=== PATIENT | female | born 1985 | race Caucasian/White ===

== ENCOUNTER 2024-09-02 10:43 | Outpatient (AMB) | payer OTHER, SELFPAY ==
--- NOTE | 2024-09-02 10:44 | A.OFFPC_ITS ---
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 Required: No Allergies No Known Allergies Allergy (Verified 09/02/24 11:20) Medication List - Last Reconciled 09/02/24 by ANYA McclureP- escitalopram oxalate (Lexapro) 5 mg PO DAILY folic acid 1 mg PO DAILY levothyroxine 25 mcg PO DAILY mecobalamin (vitamin B12) 1,000 mcg PO DAILY norethindrone-ethin estradiol 1-35 mg-mcg 1 tab PO DAILY thiamine HCl (vitamin B1) 50 mg PO DAILY Tobacco use date assessed: 09/02/24 Dental Screening Dental Screen Date: 09/02/24 Did you have a dental visit in the last 12 months?: No Did you have a dental problem in the last 6 months where you did not have access to dental care?: No Was dental information given to patient?: Patient has dentist HPI HPI Comments History of Present Illness Details 38-year-old female current smoker, hypot hyroid, subacromial bursitis bilat shoulders GERD, major depressive disorder, alcohol abuse Status post appendectomy, tonsillectomy, D and C Social History - 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 - Lives with her , who is support michell of her health goals. Family history brother alive with skin cancer, mother alive with hypertension, hyperlipidemia, thyroid disorder, malignant melanoma, [place], father alive with hypertension and skin cancer, maternal grandmother COPD, maternal grandfather Alzheimer's, paternal grandmother Alzheimer's, paternal grandfather Alzheimer's Health maintenance Tdap 2021 Flu Pap 02/12/2024 ascus * pg 62 Specialists Computer Help Desk Representative The patient is a 38-year-old female presenting to establish care and manage chronic conditions. She has tobacco use disorder, alcohol use disorder, major depressive disorder/CARYL and hypothyroidism. Her major depressive disorder/CARYL has been previously managed with escitalopram 5 mg, but she expressed dissatisfaction due to perceived mental discomfort associated with taking it, leading to a temporary cessation for three weeks. After resuming escitalopram, she noticed no significant change in mood. The patient's depression and anxiety are contributing factors to her alcohol consumption, with drinking varying weekly; she occasionally drinks as a coping mechanism during stress. She reports a decreased frequency of alcohol use to four drinks weekly while on escitalopram, although she observed fluctuations in drinking patterns. Most days drinking a few nips QD. Counseling for alcohol use was attempted but deemed ineffective, mainly due to a focus on irrelevant life issues. She has faced a challenging year, dealing with family stressors, including the separation of a stepdaughter and the addition of a grandchild, impacting her mental health. Her hypothyroidism is managed with levothyroxine 25 mcg daily, without endocrinology oversight. The patient is also taking vitamin B12 supplements and control. Her last Pap smear was abnormal, categorized as ASCUS, with a follow-up disrupted by insurance changes. Physical therapy was recommended for shoulder pain, but financial and time constraints have limited her compliance. Social History - Manages stress from recent family lui ges, including stepdaughter?s separation and a new grandchild. - Smokes cigarettes but is contemplating cessation, pending stabilization of other health issues. Ros Complains of pain about bilateral knees that comes and goes. Can be worse in the morning upon waking. Makes it hard for her to go up and down the stairs. Denies any overt injury. Has not had any imaging or lab testing done. Self- limited. Has been ongoing for years. No worse since onset. Exam Awake alert oriented, no acute distress Sclera is nonicteric bilat Thyroid nontender Regular rate and rhythm Lung sounds clear to auscultation bilat Abdomen soft nontender No edema bilateral lower extremities Results - Lab work from prior appointment indica eulalia normal thyroid and liver function tests. - Previous PCP records rec'd and reviewe d Discussion Notes I discussed with the patient the current management strategies for her major depressive disorder, including increasing her escitalopram and the rationale behind this. We explored the benefits of attending the [facility] for holistic support in managing alcohol use disorder and depression. I emphasized the importance of follow-up care, particularly with her abnormal Pap smear, and reassured her about the referral process. I also advised the patient regarding the need to establish healthy boundaries to manage familial stress effectively. The patient agreed to the proposed management plan and expressed understanding of the plan's components and the rationale. Plan - Increase escitalopram from 5 to 10mg, reassess in six weeks. - Referral to [facility] for alcohol use disorder and mental health support. - Referral to [facility] for follow-up on ASCUS Pap smear. - Continue levothyroxine 25 mcg daily; n o immediate endocrinology referral needed. - Obtain nonfasting labs within the [facility] before next appointment. - Discuss possible future liver ultrasou nd if needed. consider referral to GI for upper endoscopy given ETOH - Smoking cessation ed and support Patient was informed and verbally consented to the use of an ambient scribe for clinic note documentation during this visit. Total time spent caring for the patient today was 45 minutes. This includes time spent before the visit reviewing the chart, time spent during the visit, and time spent after the visit on documentation. This note is constructed using voice recognition software. While every effort has been made to ensure accuracy in optical worker, still errors may have been included Sometimes, these errors may affect the content or meaning of the given sentence . [facility] Medical History (Updated 09/02/24 @ 15:42 by Nereyda Dang [facility]) Anxiety Thyroid disorder Surgical History (Updated 09/02/24 @ 10:58 by Imtiaz Wren MA) History of tonsillectomy History of appendectomy Family History (Updated 09/02/24 @ 10:58 by Imtiaz Wren MA) Maternal Grandfather Substance abuse Sister Substance abuse Mother Cancer Hypertension Brother Cancer Asthma Father Cancer Hypertension Social History (Updated 09/02/24 @ 10:56 by Imtiaz Wren MA) Household Members: Spouse Both parents involved: No Caregiver staying overnight: No Housing: House Are you a primary health care / medical job titles to a significant other at home: No Do you presently have visiting nurse or other home services: No 75 years or older and lives alone: No Alcohol intake: current Alcohol intake frequency: a few times a month Patient Tobacco Use Status: Current everyday Tobacco user Cigarettes Per Day: 10 Years Smoked: 19 e-Cigarette/Vaping Use: Never Used Second Hand Smoke Exposure: No Current occupational status: employed 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 1. Little interest or pleasure in doing things: not at all 2. Feeling down, depressed, or hopeless: not at all 3. Trouble falling or staying asleep, or sleeping too much: several days 4. Feeling tired or having little energy: not at all 5. Poor appetite or overeating: not at all 6. Feeling bad about yourself - or that you are a failure or have let yourself or your family down: not at all 7. Trouble concentrating on things, such as reading the newspaper or watching television: not at all 8. Moving or speaking so slowly that other people could have noticed. Or the opposite - being so fidgety or restless that you have been moving around a lot more than usual: not at all 9. Thoughts that you would be better off or of hurting yourself in some way: not at all Total score: 1 Depression Screening Interpretation: Negative Depression Screening Done: Yes 32744 - PHQ-9 Billing: Yes Source: Developed by Drs. Wayne Shelley, Rosalie Banks, Mike Banegas and colleagues, with an educational gary from [employer]. Thrive Questionnaire Date Thrive assessed: 09/02/24 I am a: Patient What is your living situation today?: I have a steady place to live Within the past 12 months, did the food you bought not last and you didn't have the money to get more?: Never true Within the past 12 months, did you worry whether your food would run out before you got money to buy more?: Never true Do you have trouble paying for medicines?: No Do you have trouble getting transportation to medical appointments?: No Do you have trouble paying your heating and electricity bill?: No Do you have trouble taking care of your child, family member or friend?: No Do you have trouble with day-to-day activities such as bathing, preparing meals, shopping, managing finances, etc.?: No Are you currently unemployed and looking for a job?: No Are you interested in more education?: No Please select the resources that you would like help with: None Currently or been in a relationship where the following occur: No concerns reported THRIVE Score: 0 AUDIT C Alcohol Use Questionnaire (AUDIT-C) 1. How often do you have a drink containing alcohol?: 2-3 times a week 2. How many drinks containing alcohol do you have on a typical day when you are drinking?: 1 or 2 3. How often do you have six or more drinks on one occasion?: Monthly Total Score: 5 Score Reviewed/Action Taken: Yes CARYL-7 AMB Questionnaire CARYL-7 Date CARYL - 7 assessed: 09/02/24 Feeling nervous, anxious, or on edge: 0 = Not at all Not being able to stop or control worryin = Not at all Worrying too much about different things: 0 = Not at all Trouble relaxin = Not at all Being so restless that it is hard to sit still: 0 = Not at all Becoming easily annoyed or irritable: 0 = Not at all Feeling afraid as if something awful might happen: 0 = Not at all Total CARYL-7 score (0-4 normal; 5-9 mild; 10-14 moderate; 15-21 severe): 0 Source: Developed by Drs. Wayne Shelley, Rosalie Banks, Mike Banegas and colleagues, with an educational gary from [employer]. CARYL-7 Assessment Billing CARYL-7 Assessment Tool: CARYL-7 Assessment 25844 Physical exam (Primary Care) Vital Signs: Last Vital Signs Pulse 72 09/02/24 10:59 Resp 14 09/02/24 10:59 BP 132/74 09/02/24 10:59 Pulse Ox 100 09/02/24 10:59 Oxygen Delivery Method Room Air 09/02/24 10:59 BMI result Body Mass Index 21.6 Tobacco/Smoking Status: Tobacco use Status Tobacco use date assessed 09/02/24 09/02/24 10:59 Patient Tobacco Use Status Current everyday Tobacco 09/02/24 10:59 e-Cigarette/Vaping Use Never Used 09/02/24 10:59 Are you ready to quit: Yes Tobacco cessation counseling provided: Yes Items discussed: Nicotine replacement, QuitWorks and Other Relapse Prevention: discussed the importance of a supportive environment, discussed extending NRT, discussed negative mood or depression after quitting, weight gain after smoking is common and discussed dietary, exercise and/or lifestyle changes Number of minutes spent counselin CPT code: 16668 - 4-10 Minutes PHQ-9: PHQ-9 Score PHQ-9: Total score 1 09/02/24 11:25 Depression Screening Interpretation: Negative Thrive Assessment: Date of Thrive Assessment Date Thrive assessed 09/02/24 09/02/24 10:48 Currently or been in a relationship where the following occur: No concerns reported Coding Level of Care Code New Pt Level 4 (46768) Complex EM visit Add On G2211 Diagnoses Alcohol abuse F10.10 Acquired hypothyroidism E03.9 Hypothyroidism type: acquired Moderate episode of recurrent major depressive disorder F33.1 Major depression episode severity: moderate CARYL (generalized anxiety disorder) F41.1 Pap smear vag w ASC-US R87.620 Tobacco dependence F17.200 Additional Codes CARYL-7 Assessment Billing - CARYL-7 Assessment Tool: CARYL-7 Assessment 77851 ([id number]) PHQ-9 - 44890 - PHQ-9 Billing: Yes ([id number]) Vital Signs *Quality* - CPT code: 80614 - 4-10 Minutes ([id number]) Assessment & Plan Assessment & Plan (1) Alcohol abuse: Code(s): F10.10 - Alcohol abuse, uncomplicated Category: Social Hx (2) Hypothyroid: Code(s): E03.9 - Hypothyroidism, unspecified Category: Medical Qualifiers: Hypothyroidism type: acquired Qualified Code(s): E03.9 - Hypothyroidism, unspecified (3) MDD (major depressive disorder), recurrent episode: Code(s): F33.9 - Major depressive disorder, recurrent, unspecified Category: Medical Qualifiers: Major depression episode severity: moderate Qualified Code(s): F33.1 - Major depressive disorder, recurrent, moderate (4) CARYL (generalized anxiety disorder): Code(s): F41.1 - Generalized anxiety disorder Category: Medical (5) Pap smear vag w ASC-US: Comment: 01/2024 Code(s): R87.620 - Atypical squamous cells of undetermined significance on cytologic smear of vagina (ASC-US) Category: Medical (6) Tobacco dependence: Comment: Smoking Cessation How to Quit There are a lot of ways to quit smoking and many resources to help you. Family members, friends, and co-workers may be supportive or encouraging, but to be successful the desire and commitment to quit must be your own. Most people who have been able to successfully quit smoking made at least one unsuccessful attempt in the past. Try not to view past attempts to quit as failures, but rather as learning experiences. Stopping smoking or using smokeless tobacco is difficult, but anyone can do it. Know the symptoms to expect when you stop. Common symptoms include: ? An intense craving for nicotine ? Anxiety, tension, restlessness, frustration, or impatience ? Difficulty concentrating ? Drowsiness or trouble sleeping, as well as bad dreams and nightmares ? Drowsiness and trouble sleeping ? Headaches ? Increased appetite and weight gain ? Irritability or depression How severe your symptoms are depends on how long you smoked and how many cigarettes you smoked each day. Feel ready to quit? ? First and foremost, set a quit date and quit completely on that day. Before your quit date, you may begin reducing your cigarette use. But remember, there is no safe level of cigarette smoking. ? List the reasons why you want to quit. Include both short- and long-term benefits. ? Identify the times you are most likely to smoke. For example, do you tend to smoke when feeling stressed or down? When out at night with friends? While drinking coffee or alcohol? When bored? While driving? Right after a meal or sex? During a work break? While watching TV or playing cards? When you are with other smokers? ? Let all of your friends, family, and co-workers know of your plan to stop smoking and your quit date. Just being aware that they know what you're going through can be helpful, especially when you are grumpy. ? Get rid of all your cigarettes just before the quit date, and clean out anything that smells like smoke, such as clothes and furniture. Make a plan about what you will do instead of smoking at those times when you are most likely to smoke. ? Be as specific as possible. For example, drink tea instead of coffee -- tea may not trigger the desire for a cigarette. Or, take a walk when you feel stressed. ? Remove ashtrays and cigarettes from the car. Place pretzels or hard candies there instead. Pretend-smoke with a straw. ? Find activities that focus your hands and mind but are not taxing or fattening. Computer games, solitaire, knitting, sewing, and crossword puzzles may help. ? If you normally smoke after eating, find other ways to end a meal. Play a tape or CD, eat a piece of fruit, get up and make a phone call, or take a walk (a good distraction that also leyva calories). Make other changes in your lifestyle. ? Change your daily schedule and habits. Eat at different times or eat several small meals instead of three large ones. Sit in a different chair or even a different room. ? Satisfy your oral habits by eating celery or other low-calorie snack, chewing sugarless gum, or sucking on a cinnamon stick. ? Go to public places and restaurants where smoking is prohibited or restricted. ? Eat regular meals and don't eat too much candy or sweet things. ? Get more exercise. Take walks or ride a bike. Exercise helps relieve the urge to smoke. Set short-term quitting goals and reward yourself when you meet them. ? Every day, put the money you normally spend on cigarettes in a jar. Then buy something pleasurable after a period of time. ? Try not to think about all the days ahead you will need to avoid smoking. Take it one day at a time. ? Even one puff or one cigarette will make your desire for more cigarettes even stronger. However, it is normal to make mistakes. So even if you have one cigarette, you don't need to take the next one. Other tips to help you quit smoking and stick to it: ? Enroll in a smoking cessation program (hospitals, health departments, community centers, and work sites often offer programs). Learn about self-hypnosis or other techniques. ? Ask your health care provider about prescription medications that are safe and appropriate for you. ? Find out about nicotine patches, gum, and sprays. The [place] [employer]'s web site -- www.cancer.org -- is an excellent resource for smokers who are trying to quit, and the [employer] [place] [employer] can help some smokers kick the habit. Above all, don't get discouraged if you aren't able to quit smoking the first time. Nicotine addiction is a hard habit to break. Try something different next time. Develop new strategies, and try again. Many people take several attempts to finally kick the habit. Code(s): F17.200 - Nicotine dependence, unspecified, uncomplicated Category: Medical Plan . Orders: Orders Complete Blood Count no Diff Today E03.9 - Hypothyroidism, unspecified, F33.9 - Major depressive disorder, recurrent, unspecified, F41.1 - Generalized anxiety disorder Comprehensive Met. Panel Today E03.9 - Hypothyroidism, unspecified, F33.9 - M ajor depressive disorder, recurrent, unspecified, F41.1 - Generalized anxiety disorder LDL Cholesterol Direct Today E03.9 - Hypothyroidism, unspecified, F33.9 - Major depressive disorder, recurrent, unspecified, F41.1 - Generalized anxiety disorder Microalbumin, Random (w Creat) Today E03.9 - Hypothyroidism, unspecified, F33.9 - Major depressive disorder, recurrent, unspecified, F41.1 - Generalized anxiety disorder TSH reflex Free T4 Today E03.9 - Hypothyroidism, unspecified, F33.9 - Major depressive disorder, recurrent, unspecified, F41.1 - Generalized anxiety disorder Vitamin B12 and Folate Today E03.9 - Hypothyroidism, unspecified, F33.9 - Major depressive disorder, recurrent, unspecified, F41.1 - Generalized anxiety disorder Hepatitis A,B,C Profile Today E03.9 - Hypothyroidism, unspecified, F33.9 - Major depressive disorder, recurrent, unspecified, F41.1 - Generalized anxiety disorder Hemoglobin A1c Today E03.9 - Hypothyroidism, unspecified, F33.9 - Major depressive disorder, recurrent, unspecified, F41.1 - Generalized anxiety disorder Vitamin D 25-OH Total Today E03.9 - Hypothyroidism, unspecified, F33.9 - Major depressive disorder, recurrent, unspecified, F41.1 - Generalized anxiety dis order Ferritin Today E03.9 - Hypothyroidism, unspecified, F33.9 - Major depressive disorder, recurrent, unspecified, F41.1 - Generalized anxiety disorder Referrals Addiction Medicine Referral F10.10 - Alcohol abuse, uncomplicated 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 Seasonal Allergies ? Insect Bites ? Cough ? Diarrhea ? Acute Asthma Attacks ? Back, Knee or Joint Pain ? Ear Infection ? Fever without a Rash ? Headaches ? Nausea ? [place] [facility], Rash or Skin Irritation ? Sore Throat ? Sports Physicals ? Vomiting Most insurances are accepted. Patients do not need to be part of the [facility] to seek care at the walk-in clinic. Locations [address] [facility] , [place] [address] ? [phone] [facility] Walk-In Care in [place] provides services to ages 18 and over. Open Monday-Monday: 8 a.m. to 5 p.m. and Monday: 9 a.m. to 3 p.m.* *Hours may vary due to staffing availability. To confirm Walk-In Care hours in [place], please call [phone]. [address] [place] [address] ? [phone] [facility] Walk-In Care in [place] provides services to ages 12 and over. Open Monday-Monday: 8 a.m. to 5 p.m. Hours may vary due to staffing availability. To confirm Walk-In Care hours in [place], please call [phone]. LABORATORY SERVICES: [facility] Lab ? Primary Location [address] [place] [address] Monday through Monday 6:00 AM ? 5:00 PM Monday 7:00 AM ? 11:00 AM* [phone] [facility] Lab is centrally located near the front entrance of the [facility] for easy outpatient access. Convenient parking is provided for outpatients. *Hours may vary due to staffing availability. To confirm Laboratory hours for any location, please call [phone]. Offsite Location For your convenience, we offer offsite laboratory draw stations at the following locations: [address] [place] [address] ? [address], [address] Monday through Monday 7:30 AM ? 1:00 PM* [phone] *Hours may vary due to staffing availability. To confirm Laboratory hours for any location, please call [phone]. [place] ? [address] Monday through Monday 6:00 AM ? 3:30 PM* Monday 6:30 AM ? 3 PM* [phone] *Hours may vary due to staffing availability. To confirm Laboratory hours for any location, please call [phone] [place] [address] Monday through Monday 7:30 AM ? 4:00 PM* [phone] *Hours may vary due to staffing availability. To confirm Laboratory hours for any location, please call [phone]. [facility] Monday through 9:00 AM ? 4:00 PM* *Hours may vary due to staffing availability. To confirm Laboratory hours for any location, please call [phone]. Appointments are not necessary. Walk-ins are welcome. Like all the departments throughout the [facility], our Lab undergoes frequent reviews to ensure the quality and accuracy of test results, and our staff takes special pride in its status as a nationally accredited facility. Patient Portal: ONE PATIENT. ONE RECORD. BETTER CARE. [facility] has a fully integrated, cutting- edge mobile electronic health information system that has revolutionized the way we care for our patients and manage our organization. This system improves communication and coordination enabling us to provide safe, higher-quality care, and an overall positive experience for staff and patients. Our first priority, as always, is to deliver the highest quality care possible. The system is running in the background supporting that priority. This portal is for all [facility] services and practices. If you are experiencing any technical difficulties with enrolling or logging into the Patient Portal please complete the [facility] Patient Portal Technical Support Form. [facility] now offers a new secure on-line interactive tool for patients to review their health information ? ?Patient Portal. This interactive web portal will enable patients and their families to take an active role in their care by providing easy, secure access to their health information via the internet. The Patient Portal provides patients with instant access to their health information, including laboratory results, medications, allergies, demographic information, visit history, and more. In addition to managing their own care, parents and health care proxies with authorized consent will appreciate the ability to access the records of those individuals for whom they provide care. Please note: if you wish to gain access (Proxy) to another patient?s portal, you will be required to come to the Medical Records Department in person at [facility]. Both the patient giving proxy access and the proxy will need to provide photo identification and complete the appropriate authorization. The Patient Portal also allows track their appointments online. The [facility] Patient Portal also saves patients time by allowing them to submit updates to their demographic and contact information prior to their visits. Portal email notifications will also alert patients to any new activity on their portal, such as test results and new appointments. In order to initially enroll in the [facility] Patient Portal, you will need to enter some required information including the following: * your [facility] Medical Record number * your personal home email address * name * date of Please note: In order to enroll in the [facility] Patient Portal, we need to have your email address on file in your electronic medical record. ?The email address needs to be specific for one person (yourself) in order for your Portal enrollment to be successful. ?You can update your email address in person with our Registration staff when you are registering for a hospital visit. ?Ot herwise, you will need to come to the Health Information Management (Medical Records) Department at [facility]. ?We are open from Monday ? Monday from 7:30 a.m. ? 4:30 p.m. ?You will be required to present a photo id. Once you have successfully enrolled in the Patient Portal, you will receive a one-time user id and password for the Portal, sent to your email address. ?This will allow you to log into the Patient Portal within 99 hrs and reset your own logon id and password, and define personal security questions. ?Once your permanent login and password have been set, you can log into the [facility] Patient Portal at any time via the blue button above or from the Portal Logon button on any page of the [facility] website. [facility] and [facility] encourage all of our patients to enroll in Patient Portal as it presents a valuable opportunity for patients and their families to actively participate in their care and stay healthy Welcome to [facility]. ?We look forward to working with you.
[2024-09-02 10:59] VITALS: BP 132/74; PULSE 72; RESP 14; O2SAT 100; BMI 21.6
== END 2024-09-02 11:39 | disposition home or self-care (01) ==
PROVIDERS: Visit Provider Nurse Practitioner Family
DX: F10.10 Alcohol abuse, uncomplicated (principal); E03.9 Hypothyroidism, unspecified; F33.1 Major depressive disorder, recurrent, moderate; F41.1 Generalized anxiety disorder; R87.620 Atypical squamous cells of undetermined significance on cytologic smear of vagina (ASC-US); F17.200 Nicotine dependence, unspecified, uncomplicated

== ENCOUNTER → 2024-09-02 10:43 | Outpatient (BNVA) | payer OTHER, SELFPAY | PROVIDERS: Visit Provider Nurse Practitioner Family | DX: F10.10 Alcohol abuse, uncomplicated (principal); E03.9 Hypothyroidism, unspecified; F33.1 Major depressive disorder, recurrent, moderate; F41.1 Generalized anxiety disorder; R87.620 Atypical squamous cells of undetermined significance on cytologic smear of vagina (ASC-US); F17.210 Nicotine dependence, cigarettes, uncomplicated | CPT/HCPCS: 96127 ==

== ENCOUNTER 2024-10-09 11:29 | Outpatient (REF) | payer OTHER, SELFPAY ==
--- OUTSIDE RECORDS SUMMARY | 2024-10-09 12:10 | XMS_ITS | Data Portability ---
[facility] Organization [facility] Address [address] [place] [address] Care Team Providers Care Tugger Operator Name Role Phone FAVIOLA GOODSON Primary Care Provider [phone] FAVIOLA GOODSON Referring Provider Assessment No assessment recorded. Plan of Treatment Reminders Order Date Submit Date Provider Last Modified By Organization Details Last Modified Time Details Appointments None recorded . Lab rapid strep group A, throat 06/12/20 [id number] [facility], [address] [place], [address], 9 14:06:29 culture, throat 06/12/20 [facility], [address] [place], [address], 9 09:08:54 Referral None recorded . Procedures None recorded . Surgeries None recorded . Imaging None recorded . Medication Orders None recorded . Patient TargetsNo targets recorded. Patient InstructionsNo instructions recorded. Reason for Referral None Reported. Results Created Date Observation Date Name Description Value Unit Range Abnormal Flag Note LastModifiedBy Organization Detail LastModifiedTime 07/22/20 17 07/22/2017 surgi bryce mendiolao logy study surgical ----- ----- ----- ----- ----- ----- ----- ----- ----- ----- ----- ----- ----- ----- ----- ----- ----- ----- -- PATIE NT: DEBI NAQVI [id number] LOC: [facility] U #: [id number] AGE/S X: 31/F ROOM: RE07/[address]: Rachel mayes,ulises [facility] DO : 12/13 BED: DIS: STATU S: DEP [facility] PROCE DURE/ OPERA TION PERFO RMED: SHERI EMILI MY SPEC #: [id number] RECD: 07/24-0 803 STATU S: SOUT REQ #: [id number] TRINA: 07/22-[address]: Rcahel mayes,[facility] DO ENTER ED: 07/24-0 806 SP TYPE: Surgi bryce OTHR DR: Ulises Hager File TISSU E:Rosalie endix ----- ----- ----- ----- ----- ----- ----- ----- ----- ----- ----- ----- ----- ----- ----- ----- ----- ----- -- Final Diagn osis SHERI TOVARSHERI MY: - Acute appen dicit is with peria ppend iciti s. Gross Exami natio n Recei meena in forma jamal label ed Krist en Michelle hernandez, 12-13 and appe ndix . It consi sts of a stapl ed appen re with its attac hed appen dicea l fat, the appen re measu ring 7 cm in lengt h by 1.0 cm in maxim um diame ter. The attac hed fatty appen dicea l fat measu res 1.5 cm in maxim al thick ness. Almos t the entir e seros al surfa ce is cover ed by kojo fisher exuda te. The tip of the appen re is inked and the speci men is RS, two casse ttes as follo ws: casse tte 1 = longi tudin al secti on and resec tion tessy n casscharissa tte 2 = repre senta tive cross -sect ions. () 07-24 MIRA Turk MD 07/25 1212 ----- ----- ----- ----- ----- ----- ----- ----- ----- ----- ----- ----- ----- ----- ----- ----- ----- ----- -- Not Available [facility] [address] [place], [address], 07/25/2017 12:13:50 06/12/2006/14/2019 cultu re, throa t throat culture No growth . Not Available [facility] [address] [place], [address], 06/14/2019 09:08:54 06/12/2006/12/2019 rapid strep group A, throa t Result negati ve Not Available [address] [place], [address], 06/12/2019 13:29:39 06/12/2006/12/2019 rapid strep group A, throa t Internal Control Valid Not Available [address] [place], [address], 06/12/2019 13:29:39 06/12/2006/12/2019 rapid strep group A, throa t Lot # [id number] Not Available [address] [place], [address], 06/12/2019 13:29:39 06/12/2006/12/2019 rapid strep group A, throa t Exp. Date 2020 Not Available [facility] [address] [place], [address], 06/12/2019 13:29:39 Result Notes None recorded. Problems No Known Problems Procedures Surgical History Date Name Laterality Status Provider Name and Address Organization Details Recorded Time 7 appendectomy completed Hortencia Hanley [facility] 07/25/2017 13:56:33 Imaging Results None recorded. Procedure Notes None recorded. Medical Equipment None Reported. Allergies No known drug allergies Medications Name Sig Start Date Stop Date Status Note LastModified by Organization Details LastModified Time hydrocodone 5 mg-acetaminop hen 325 mg tablet 2016 completed Not Available Not Available Not Available Microgestin Fe 1.5/30 (28) 1.5 mg-30 mcg (21)/75 mg (7) tablet active Not Available Not Available N ot Available Vitals Date Recorded Body height Body mass index (BMI) Body weight Systolic blood pressure Diastolic blood pressure Provider Name and Address Organization Details Last Updated DateTime 07/31/2017 170.18 cm 20.4 kg/m2 11263.01 g 118 mm[Hg] 72 mm[Hg] Sandy Dubon MA [facility] 7 09:24:21 Date Recorded Body weight Body temperature Heart rate Oxygen saturation Oxygen saturation in Arterial blood by Pulse oximetry Systolic blood pressure Diastolic blood pressure Provider Name and Address Organization Details Last Updated DateTime 9 33746.2 9 g 99.1 [degF] 87 /min 98 % 98 % 126 mm[Hg] 68 mm[Hg] Elvia Pistorino [facility] 9 13:29:32 Social History None recorded. Functional Status None recorded. Mental Status None recorded. Family History Nothing Reported. Medical History No medical history recorded. Gynecological HistoryNo gynecological history recorded. Obstetrics History GPAL:G 0 P 0 0 0 0 Past Encounters Encounter ID Performer Location Encounter Start Date Encounter Closed Date Diagnosis/Indication Diagnosis SNOMED-CT Code Diagnosis ICD10 Code Diagnosis Note [id number] Chris mayes DO [facility] [address] [place] [address] NAIMA MARTÍNEZ [id number] 07/31/2017 09:12:45 07/31/2017 12:46:52 Postoperative visit 540471789 Z09 OK to D/C and follow up prn Path acute appendicit is [id number] [facility] [address] [place] [address] 06/12/2019 13:08:14 06/12/2019 14:41:48 Acute pharyngitis 462716935 J02.9 ? P resentatio n consistent with viral pharyngiti s. Rapid strep negative; sending culture and will call with results. Advise fluids, rest, Tylenol/Mo evans for fever and pain. Follow up with PCP in 2-3 days if symptoms persist or sooner if worsening. Impacted cerumen 7703957 6 H61.23 Cerumen removed with improvemen t to symptoms, no signs/symp toms of secondary infxn. Discussed use of OTC kits to help prevent impaction. Advised against use of q-tips. F/u if symptoms recur. Health Concerns Section Related Observation LastModified by Organization Detai ls LastModified Time None Recorded Concern Status LastModified by Organization Details LastModified Time None Recorded Advance Directives Directive None Recorded Payers Encounter Date Sequence Insurance Name Policy Number Policy Garcia Covered Member ID Garcia Member ID Guarantor Name 07/31/2017 1 [facility] [id number] Tiffany Mehtamelba [id number] Tiffany Mixon 06/12/2019 1 [facility] Tiffany Mixon [id number] Tiffany Mixon Notes Date Note Type Note Provider Name and Address Organization Details Recorded Time 07/31/2017 text/html 31 yo F presenting for lap appendectomy. She is doing well post operatively. Incision is C/D/I. Pain resolved. Tolerating diet. Having BM. Chris Ceja DO [address] [place] [address], [phone], [facility] 07/31/2017 11:57:59 06/12/2019 text/html 33/F presents fo r sore throat. Reports: - 3d sore throat, fatigue, body aches - still has appetite - minimal runny nose, no cough - tonsils removed 10 yrs ago, no strep since then - smoker - PCP Dr. Faviola Goodson ROS: sore throat, fatigue, body aches, minimal rhinorrhea, no fever, no cough, no ear pain Helen Parker MD [address] [place] [address], [phone], [facility] 06/13/2019 05:52:51 OBGyn Episode No OBEpisode recorded.
--- OUTSIDE RECORDS SUMMARY | 2024-10-09 12:10 | XMS_ITS | Clinical Summary ---
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 01/31/2024 Active cyanocobalamin (VITAMIN B-12) 1,000 mcg tablet Take 1 Tablet by mouth daily. 03/07/2022 Active escitalopram (LEXAPRO) 5 mg tablet Take 1 tablet (5 mg total) by mouth 1 (one) time each day. 90 each 06/25/2024 Active levothyroxine (SYNTHROID, LEVOTHROID) 25 mcg tablet Take 1 tablet (25 mcg total) by mouth 1 (one) time each day before breakfast. 90 tablet 1 06/25/2024 Active Active Problems Problem Noted Date Diagnosed Date Elevated TSH 05/27/2024 Cigarette smoker 03/07/2022 Subacromial bursitis of both shoulders 2 Immunizations Name Administration Dates Next Due DTP 02/26/1993, 9,08/01/1988,1987,03/04/1988 [id number] (Pentacel) 2mo to less than 5yo 07/10/1989 HPV, Quadrivalent 02/06/2013,10/01/2012,07/26/20 12 Hepatitis B Pediatric (Enger ix B; Recombivax HB) to less than 20 yo 05/07/1997,07/30/1996,05/02/1996 Influenza trivalent, with preservative (Fluzone; Afluria) 6mo and older 05/06/2011 MMR, measles mumps and rubel la Live (Priorix; M-M-R II) 12mo and older 04/14/1999,12/24/1990 OPV 02/26/1993, 9,05/25/1988,1987 Pfizer SARS-CoV-2 COVID-19, mRNA, LNP-S, preservative free 08/21/2021 Td Tetanus diptheria (Tdvax) 7yo and older 04/14/1999 Tdap Tetanus diptheria acell ular pertussis (Boostrix; Adacel) 7yo and older 03/07/2022,05/06/2011 Surgical History Surgery Date Site/Laterality Comments TONSILLECTOMY 08/27/10 PROCEDURE: HISTORICAL TONSILLECTOMY OTHER SURGICAL HISTORY 2008 PROCEDURE: HISTORICAL D&C APPENDECTOMY 07/2017 PROCEDURE: PA APPENDECTOMY Medical History Medical History Date Comments Strep sore throat 10/29,11/29,05/01 DX:Strep sore throat; COMMENT: referred to ENT, tonsilectomy 09/01 Elevated TSH DX:Elevated TSH Tobacco user DX:Tobacco user Varicella DX:Varicella Subacromial bursitis DX:Subacrom ial bursitis Family History Medical History Relation Name Comments Other: skin cancer Brother Hypertension Father Other: skin cancer Father Alzheimer's disease Maternal Grandfather COPD Maternal Grandmother Hyperlipidemia Mother Hypertension Mother Other cancer Mother malignant melan joão Thyroid disease Mother Alzheimer's disease Paternal Grandfather Alzheimer's disease Paternal Grandmother Breast cancer Neg Hx Ovarian cancer Neg Hx Uterine cancer Neg Hx Relation Name Status Comments Brother Father Alive Maternal Grandfather Maternal Grandmother Mother Alive Paternal Grandfather Paternal Grandmother Social History Tobacco Use Types Packs/Day Years Used Date Smoking Tobacco: Every Day Cigarettes Smokeless Tobacco: Never Alcohol Use Standard Drinks/Week Comments Yes 0 (1 standard drink = 0.6 oz pur e alcohol) Housing Instability Answer Date Recorde d Are you worried that in the next 2 months you may not have stable housing? No 06/25/2024 Food Access & Nutrition Answer Date Rec orded Do you have access to a vari ety of food including fruits and vegetables? Yes 06/25/2024 Access to Healthcare Answer Date Record ed Within the last 3 months, ho w many times did you visit the emergency department for your medical care? 0 06/25/2024 Health Literacy Answer Date Recorded How often do you need to hav e someone help you when you read instructions, pamphlets, or other written material from your doctor or pharmacy? Never 06/25/2024 Caregiver: How often do you need to have someone help you when you read instructions, pamphlets, or other written material from your doctor or pharmacy? Not on file 06/25/2024 Financial Risk Answer Date Recorded How hard is it for you to pa y for the very basics like food, housing, medical care, and air conditioning / heating? Patient declined 06/25/2024 Transportation Answer Date Recorded Has the lack of transportati on kept you from meetings, work, or from getting things needed for daily living? No Has the lack of transportati on kept you from medical appointments or from getting medications? No 06/25/2024 Social Isolation Answer Date Recorded How often do you feel lonely or isolated from th ose around you? Never 06/25/2024 Food Risk Answer Date Recorded Within the past 12 months we worried whether our food would run out before we got money to buy more. Never true 06/25/2024 Within the past 12 months th e food we bought just didn't last and we didn't have money to get more. Never true 06/25/2024 Dependent Care Answer Date Recorded Do you need help finding or paying for care for your loved ones. For example, child day care provider or elderly care for an older adult? No 06/25/2024 Education Answer Date Recorded Do you think completing more education or training, like finishing a GED, going to college, or learning a trade, would be helpful for you? Patient declined 06/25/2024 Employment and Income Answer Date Recor ded During the last four weeks, have you been actively looking for work? No 06/25/2024 Living Situation Answer Date Recorded What is your living situation? 1 08/25/2023 Comments Unknown Sex and Gender Information Value Date Recorded Sex Assigned at Not on file Legal Sex Female 9:32 PM EST Gender Identity Not on file Sexual Orientation Not on file Obstetrics History Last Filed Vital Signs Vital Sign Reading Time Taken Comments Blood Pressure 98/62 06/25/2024 1:33 PM EST Pulse 72 06/25/2024 1:33 PM EST Temperature 36.3 ??C (97.3 ??F) 06/25/2024 1:33 PM ES T Respiratory Rate 14 06/25/2024 1:33 PM EST Oxygen Saturation - - Inhaled Oxygen Concentration - - Weight 60.8 kg (134 lb) 06/25/2024 1:33 PM EST Height 170.2 cm (5' 7 ) 06/25/2024 1:33 PM EST Body Mass Index 20.99 06/25/2024 1:33 PM EST Plan of Treatment Health Maintenance Due Date Last Done Comments Pneumococcal Vaccine: Pediatrics (0 to 5 Years) and At-Risk Patients (6 to 64 Years) (1 of 2 - PCV) 12/13/2006 COVID-19 Vaccine () 04/21/2024 08/21/2021, 08/04/2021, 09/29/2020, Additional history exists Influenza Vaccine (#1) 2024 , 08/04/2021, 05/06/2011 Depression Screening 06/25/2025 06/25/2024 Social Influencers of Health Screening 06/25/2025 06/25/2024 Cholesterol Screening (Lipid Panel) 03/07/2027 03/07/2022 Cervical Cancer Screening: HPV 01/30/2029 01/31/2024 DTaP,Tdap,and Td Vaccines (9 - Td or Tdap) 03/07/2032 03/07/2022, 05/06/2011, 04/14/1999, Additional history exists HIB Vaccines Completed 07/10/1989, 07/10/1989 IPV Vaccines Completed 02/26/1993, 06/22, 07/10/1989, Additional history exists Hepatitis B Vaccines Completed 05/07/1997, 07/30/1996, 05/02/1996 MMR Vaccines Completed 04/14/1999, 12/24/1990 HPV Vaccines Completed 02/06/2013, 09/21, 07/26/2012 HIV Screening Completed 07/02/2019 Hepatitis C Screening Completed 03/07/2022 Hepatitis A Vaccines Aged Out No long er eligible based on patient's age to complete this topic Meningococcal ACWY Vaccine Aged Out N o longer eligible based on patient's age to complete this topic Meningococcal B Vacine Aged Out No lo nger eligible based on patient's age to complete this topic RSV Immunization Patients Under 20 months Aged Out No longer eligible based on patient's age to complete this topic Varicella Vaccines Aged Out No longer eligible based on patient's age to complete this topic Procedures Procedure Name Priority Date/Time Associated Diagnosis Comments HPV Routine 01/31/2024 HEPATITIS C SCREENING Routine 03/07/2022 LIPID PANEL Routine 03/07/2022 HIV SCREENING Routine 07/02/2019 from Last 3 Months or Most Recently Relevant to Health Maintenance Results * Cervical Cancer Screening: HPV (01/31/2024) [facility] Cervical Cancer Screening: HPV No Interpretation , Abstracted [facility] Provider HEALTH MAINTENANCE Final Result * Hepatitis C Screening (03/07/2022) [facility] Hepatitis C Screening Abstracted [facility] Provider HEALTH MAINTENANCE Final Result * Lipid panel (03/07/2022) [facility] LDL/HDL Ratio 2 0 - 4 Triglycerides 82 0 - 150 mg/dL Cholesterol 185 0 - 200 mg/dL HDL 76 >=40 mg/dL LDL Cholesterol 93 0 - 100 mg/dL Blood Venous blood specimen / Unknown [facility] Provider LAB BLOOD ORDERABLES Jennifer l Result * HIV Screening (07/02/2019) [facility] HIV Screening Abstracted [facility] Provider HEALTH MAINTENANCE Final Result from Last 3 Months or Most Recently Relevant to Health Maintenance Insurance [facility] Care Teams Landscaping 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
[2024-10-09 14:25] LABS: Hemoglobin 13.2 g/dl (12.0-16.0); Mean Corpuscular Volume 93.9 fL (80.0-98.0); Mean Platelet Volume 10.7 fL (9.4-12.3); Platelet Count 236 X10*3/uL (160-400); Red Blood Count 4.26 X10*6/uL (4.20-5.50); Red Cell Distribution Width 12.7 % (11.0-16.0); White Blood Count 6.6 X10*3/uL (4.8-10.8)
[2024-10-09 14:32] LABS: Estimated Average Glucose 94 mg/dL; Hemoglobin A1C 102.6847 umol/L; Hemoglobin A1c % 4.9 % (<6.0)
[2024-10-09 14:46] LABS: Alanine Aminotransferase 11 U/L (0-31); Albumin Level 4.3 g/dL (3.5-5.0); Anion Gap 11 (12-20); Aspartate Amino Transferase 23 U/L (5-31); Bilirubin Total 1.1 mg/dL (0.0-1.0); Blood Urea Nitrogen 12 mg/dL (9-16); Carbon Dioxide 25 mmol/L (22-29); Chloride 108 mmol/L (96-108); Estimated Glomerular Filt Rate > 60; Glucose Random 93 mg/dL (60-115); Sodium 140 mmol/L (135-145); Total Protein 7.1 g/dL (6.5-8.0)
[2024-10-09 14:46] LABS: Creatinine Urine 434.83 mg/dL; Microalbum/Creatinine Ratio Ur 17.9 ug/mg cr (<30)
[2024-10-09 15:01] LABS: Alkaline Phosphatase 61 U/L (39-117); Ferritin 23 ng/mL (10-122); Vitamin D 25-OH Total 40.3 ng/mL (>30)
[2024-10-09 15:10] LABS: Folate 15.5 ng/mL (> or = 4.0); Vitamin B12 542 pg/mL (200-900)
[2024-10-10 08:15] LABS: HBS Num1 219.07 mIU/mL (0-7.99); HBc Num1 0.09 S/CO (0.00-0.79); Hepatitis A Antibody IgM 0.15 Index (0-0.79); Hepatitis B Core Antibody Nonreactive (Nonreactive); Hepatitis B Surface Antigen Negative (Negative); ~HepC Num1 0.06 S/CO (0.00-0.79); ~Hepatitis A Antibody IgM Nonreactive (Nonreactive); ~Hepatitis B Surface Antibody REACTIVE (Nonreactive); ~Hepatitis C Antibody Nonreactive (Nonreactive)
[2024-10-10 13:38] LABS: LDL Cholesterol Direct 73 mg/dL (<100)
== END 2024-10-09 11:30 | disposition home or self-care (01) ==
LOC: HO.WFDLDS 11:29
PROVIDERS: Visit Provider Nurse Practitioner Family
DX: E03.9 Hypothyroidism, unspecified (principal); F33.9 Major depressive disorder, recurrent, unspecified; F41.1 Generalized anxiety disorder
CPT/HCPCS: 36415; 80053; 82043; 82306; 82570; 82607; 82728; 82746; 83036; 83721; 84443; 85027; 86704; 86706; 86709; 86803; 87340

== ENCOUNTER 2024-10-15 10:26 | Outpatient (AMB) | payer OTHER, SELFPAY ==
--- NOTE | 2024-10-15 10:28 | A.OFFPC_ITS ---
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 Allergies No Known Allergies Allergy (Verified 10/15/24 10:29) Medication List - Last Reconciled 10/15/24 by ANYA McclureP- escitalopram oxalate 20 mg PO DAILY folic acid 1 mg PO DAILY indomethacin 25 mg PO TID PRN levothyroxine 25 mcg PO DAILY mecobalamin (vitamin B12) 1,000 mcg PO DAILY norethindrone-ethin estradiol 1-35 mg-mcg 1 tab PO DAILY Tobacco use date assessed: 10/15/24 Dental Screening Dental Screen Date: 10/15/24 Did you have a dental visit in the last 12 months?: Yes Did you have a dental problem in the last 6 months where you did not have access to dental care?: No Was dental information given to patient?: Patient has dentist HPI HPI Comments History of Present Illness Details 38-year-old female current smoker, hypot hyroid, subacromial bursitis bilat shoulders GERD, major depressive disorder, alcohol abuse Status post appendectomy, tonsillectomy, D and C Social History - 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 - Lives with her , who is support michell of her health goals. Family history brother alive with skin cancer, mother alive with hypertension, hyperlipidemia, thyroid disorder, malignant melanoma, [place], father alive with hypertension and skin cancer, maternal grandmother COPD, maternal grandfather Alzheimer's, paternal grandmother Alzheimer's, paternal grandfather Alzheimer's Health maintenance Tdap 2021 Flu Pap 02/12/2024 ascus * pg 62 09/2024 did not call to schedule [facility] referral closed would like to wait @ this time Specialists Director Global Sales - The patient is a 38-year-old female pr esenting with follow-up on anxiety management and review of lab results. - She has been experiencing Generalized Anxiety Disorder, with no discernible change following an increase in her escitalopram dose from 5 mg to 10 mg. The patient reports no exacerbation of symptoms. - She has Alcohol Use Disorder, with min or improvements in reducing alcohol intake. [facility]: has not successfully made contact with them for further support. - The patient has experienced Bilirubin Level Increase, as indicated by lab results revealing elevated bilirubin. Liver function tests otherwise remain normal. - Patient reports knee pain (Knee Arthra lgia) that fluctuates in intensity, occasionally feeling better. prn NSAIds w/ some relief. - A past result showed ASCUS on cervical cytology, but she currently defers further follow-up testing @ this time. Exam Awake alert oriented, no acute distress Sclera is nonicteric bilat Thyroid nontender Regular rate and rhythm Lung sounds clear to auscultation bilat Abdomen soft nontender No edema bilateral lower extremities Mood and affect appropriate Results Labs from October 10 2024 show a normal CBC, normal electrolytes, normal renal function, hemoglobin A1c of 4.9%, elevated total bilirubin at 1.1% otherwise normal LFTs, normal B12 vitamin-D folate TSH, direct LDL 73 normal microalbumin creatinine ratio - Hepatitis Panel: Negative, immune to H epatitis B Discussion Notes During the visit, we discussed the patient's anxiety management, and I recommended maximizing her current medication by increasing escitalopram to 20 mg before considering the addition of another medication, as she has not experienced side effects from the increase to 10 mg. The patient was educated on the association of alcohol consumption with liver implications, despite normal enzyme readings, and the importance of an ultrasound for further assessment, which she intends to postpone due to cost concerns. Regarding her knee pain, I suggested indomethacin as an option for symptomatic relief, noting its benefit despite its non-addictive profile. We discussed the ASCUS result from her past Pap smear, and she has elected to postpone re-evaluation. Follow-up is planned in six weeks to reassess her condition after the escitalopram dosage change. She was advised to check costs for the liver ultrasound and canopy coverage for diagnostics. Assessment and Plan 1. Generalized Anxiety Disorder: - Escitalopram dosage increased to the m aximum of 20 mg as the current dosage is ineffective. To be monitored for effectiveness and potential side effects. 2. Alcohol Use Disorder: - Continued alcohol intake reduction enc ouraged. Advised contact with [facility] for additional support. 3. Bilirubin Level Increased: - Liver ultrasound recommended to assess potential fibrosis. Currently postponed due to cost concerns. Reinforce moderation in alcohol consumption. 4. Knee Arthralgia: - Offered indomethacin for knee pain as needed, advising on appropriate administration with food to prevent gastrointestinal side effects. 5. ASCUS on Cervical Cytology: - Monitoring deferred as patient prefers to delay follow-up cervical cytology @ this time Patient Instructions - Increase escitalopram dose to 20 mg on ce daily. - Contact the [facility] for further support regarding alcohol use disorder. - Use indomethacin as needed for knee pa in, ensuring to take with food, and do not combine with ibuprofen. - Investigate the cost of liver ultrasou nd with your insurance company to assess feasibility. - Follow up in six weeks via telehealth or in person, depending on convenience. Consent The patient received comprehensive information on the risks and benefits of increasing escitalopram to 20 mg for optimal monotherapy treatment and has consented to this plan. The option of indomethacin was discussed for knee pain, including potential gastrointestinal side effects and the necessity for food co- administration, which the patient acknowledged and consented to use if necessary. An ultrasound for liver assessment was recommended but deferred pending cost evaluation, with a mutual understanding of revisiting this need based on future financial assessments. Patient was informed and verbally consented to the use of an ambient scribe for clinic note documentation during this visit. Total time spent caring for the patient today was 30 minutes. This includes time spent before the visit reviewing the chart, time spent during the visit, and time spent after the visit on documentation, reviewing laboratory results, diagnostic imaging, medications, performing a medically necessary evaluation, counseling on diagnoses, care coordination, ordering appropriate tests, ordering appropriate medications, review of tests performed by other providers, reporting test results with the patient, communication with other healthcare providers. [facility] Medical History (Updated 09/02/24 @ 15:42 by Nereyda Dang [facility]) Anxiety Thyroid disorder Surgical History (Updated 09/02/24 @ 10:58 by Imtiaz Wren MA) History of appendectomy History of tonsillectomy Family History (Updated 09/02/24 @ 10:58 by Imtiaz Wren MA) Maternal Grandfather Substance abuse Sister Substance abuse Mother Cancer Hypertension Brother Cancer Asthma Father Cancer Hypertension Social History (Updated 09/02/24 @ 10:56 by Imtiaz Wren MA) Household Members: Spouse Both parents involved: No Caregiver staying overnight: No Housing: House Are you a primary daytime caregiver to a significant other at home: No Do you presently have visiting nurse or other home services: No 75 years or older and lives alone: No Alcohol intake: current Alcohol intake frequency: a few times a month Patient Tobacco Use Status: Current everyday Tobacco user Cigarettes Per Day: 10 Years Smoked: 19 e-Cigarette/Vaping Use: Never Used Second Hand Smoke Exposure: No Current occupational status: employed 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 1. Little interest or pleasure in doing things: not at all 2. Feeling down, depressed, or hopeless: several days 3. Trouble falling or staying asleep, or sleeping too much: not at all 4. Feeling tired or having little energy: not at all 5. Poor appetite or overeating: not at all 6. Feeling bad about yourself - or that you are a failure or have let yourself or your family down: not at all 7. Trouble concentrating on things, such as reading the newspaper or watching television: not at all 8. Moving or speaking so slowly that other people could have noticed. Or the opposite - being so fidgety or restless that you have been moving around a lot more than usual: not at all 9. Thoughts that you would be better off or of hurting yourself in some way: not at all Total score: 1 19026 - PHQ-9 Billing: Yes Source: Developed by Drs. Wayne Shelley, Rosalie Banks, Mike Banegas and colleagues, with an educational gary from [employer]. Thrive Questionnaire Date Thrive assessed: 10/15/24 I am a: Patient What is your living situation today?: I have a steady place to live Within the past 12 months, did the food you bought not last and you didn't have the money to get more?: Never true Within the past 12 months, did you worry whether your food would run out before you got money to buy more?: Never true Do you have trouble paying for medicines?: No Do you have trouble getting transportation to medical appointments?: No Do you have trouble paying your heating and electricity bill?: No Do you have trouble taking care of your child, family member or friend?: No Do you have trouble with day-to-day activities such as bathing, preparing meals, shopping, managing finances, etc.?: No Are you currently unemployed and looking for a job?: No Are you interested in more education?: No Please select the resources that you would like help with: None Currently or been in a relationship where the following occur: No concerns reported THRIVE Score: 0 CARYL-7 AMB Questionnaire CARYL-7 Date CARYL - 7 assessed: 10/15/24 Feeling nervous, anxious, or on edge: 0 = Not at all Not being able to stop or control worryin = Several days Worrying too much about different things: 1 = Several days Trouble relaxin = Not at all Being so restless that it is hard to sit still: 0 = Not at all Becoming easily annoyed or irritable: 0 = Not at all Feeling afraid as if something awful might happen: 0 = Not at all Total CARYL-7 score (0-4 normal; 5-9 mild; 10-14 moderate; 15-21 severe): 2 Source: Developed by Drs. Wayne Shelley, Rosalie Banks, Mike Banegas and colleagues, with an educational gary from [employer]. CARYL-7 Assessment Billing CARYL-7 Assessment Tool: CARYL-7 Assessment 40145 Physical exam (Primary Care) Vital Signs: Last Vital Signs Temp 97.1 F 10/15/24 10:34 Pulse 60 10/15/24 10:34 Resp 12 10/15/24 10:34 BP 124/72 10/15/24 10:34 Pulse Ox 100 10/15/24 10:34 Oxygen Delivery Method Room Air 10/15/24 10:34 BMI result Body Mass Index 26.8 Tobacco/Smoking Status: Tobacco use Status Tobacco use date assessed 10/15/24 10/15/24 10:36 Patient Tobacco Use Status Current everyday Tobacco 10/15/24 10:36 e-Cigarette/Vaping Use Never Used 10/15/24 10:36 PHQ-9: PHQ-9 Score PHQ-9: Total score 1 10/15/24 10:36 Thrive Assessment: Date of Thrive Assessment Date Thrive assessed 10/15/24 10/15/24 10:36 Currently or been in a relationship where the following occur: No concerns reported Coding Level of Care Code Est Pt Level 4 (24796) Complex EM visit Add On G2211 Diagnoses Alcohol abuse F10.10 CARYL (generalized anxiety disorder) F41.1 Acquired hypothyroidism E03.9 Hypothyroidism type: acquired Moderate episode of recurrent major depressive disorder F33.1 Major depression episode severity: moderate Pap smear vag w ASC-US R87.620 Additional Codes CARYL-7 Assessment Billing - CARYL-7 Assessment Tool: CARYL-7 Assessment 92950 ([id number]) PHQ-9 - 75578 - PHQ-9 Billing: Yes ([id number]) Assessment & Plan Assessment & Plan (1) Alcohol abuse: Code(s): F10.10 - Alcohol abuse, uncomplicated Category: Social Hx (2) CARYL (generalized anxiety disorder): Code(s): F41.1 - Generalized anxiety disorder Category: Medical (3) Hypothyroid: Code(s): E03.9 - Hypothyroidism, unspecified Category: Medical Qualifiers: Hypothyroidism type: acquired Qualified Code(s): E03.9 - Hypothyroidism, unspecified (4) MDD (major depressive disorder), recurrent episode: Code(s): F33.9 - Major depressive disorder, recurrent, unspecified Category: Medical Qualifiers: Major depression episode severity: moderate Qualified Code(s): F33.1 - Major depressive disorder, recurrent, moderate (5) Pap smear vag w ASC-US: Comment: 01/2024 Code(s): R87.620 - Atypical squamous cells of undetermined significance on cytologic smear of vagina (ASC-US) Category: Medical Plan . Medications: New escitalopram oxalate 20 mg PO DAILY 30 tabs 1RF indomethacin administer with food or milk 25 mg PO TID PRN 30 caps 1RF pain (scale score 1-3) Discontinued escitalopram oxalate Discontinued Reason: Doctor's Order 10 mg PO DAILY 30 tabs 0RF Patient Instructions: [facility] [phone]
[2024-10-15 10:34] VITALS: BP 124/72; PULSE 60; RESP 12; TEMP 36.2; O2SAT 100; BMI 26.8
--- OUTSIDE RECORDS SUMMARY | 2024-10-15 12:21 | XMS_ITS | Clinical Summary ---
Author Organization [facility] [address] [place] [address] [place] [phone] Phone Care Team Providers Care Irb Compliance Coordinator Name Role Phone Kofi Carey MD Primary [...] Administration Dates Next Due DTP 02/26/1993, 9,08/01/1988,1987,03/04/1988 [id number] (Pentacel) 2mo to less than 5yo 07/10/1989 [...] 2008 PROCEDURE: HISTORICAL D&C APPENDECTOMY 07/2017 PROCEDURE: IA APPENDECTOMY Medical History Medical History Date Comments [...] for your loved ones. For example, child care counselor or elderly care for an older adult? [...] Results * Cervical Cancer Screening: HPV (01/31/2024) [facility] Cervical Cancer Screening: HPV No Interpretation , Abstracted [facility] Provider HEALTH MAINTENANCE Final Result * Hepatitis C Screening (03/07/2022) [facility] Hepatitis C Screening Abstracted [facility] Provider HEALTH MAINTENANCE Final Result * Lipid panel (03/07/2022) [facility] LDL/HDL Ratio 2 0 - 4 Triglycerides 82 0 - 150 mg/dL Cholesterol 185 0 - 200 mg/dL HDL 76 >=40 mg/dL LDL Cholesterol 93 0 - 100 mg/dL Blood Venous blood specimen / Unknown [facility] Provider LAB BLOOD ORDERABLES Jennifer l Result * HIV Screening (07/02/2019) [facility] HIV Screening Abstracted [facility] Provider HEALTH MAINTENANCE Final Result from Last 3 Months or Most Recently Relevant to Health Maintenance Insurance [facility] Care Teams Irb Compliance Coordinator Relationship Specialty Start Date End Date Kofi Carey MD [address] [place] [address] OR PCP - General Internal Medicine 12/27/21
--- OUTSIDE RECORDS SUMMARY | 2024-10-15 12:22 | XMS_ITS | Data Portability ---
Author Organization [facility] Address [address] [place] [address] Care Team Providers Care Men'S Swim Coach Name Role Phone FAVIOLA GOODSON Primary Care Provider FAVIOLA GOODSON Referring Provider Assessment No assessment recorded. Plan of Treatment Reminders Order Date Submit Date Provider Last Modified By Organization Details Last Modified Time Details Appointments None recorded . Lab rapid strep group A, throat 06/12/20 [id number] [facility], [address] [place], [address], 9 14:06:29 culture, throat 06/12/20 [facility] Patient Reg, [address] [place], [address], 9 09:08:54 Referral None recorded . Procedures [...] -- PATIE NT: DEBI [id number] LOC: [facility] U #: [id number] AGE/S X: 31/F ROOM: RE07/[address]: Rachel mayes,ulises [facility] DO : 12/13 BED: DIS: STATU S: DEP [facility] PROCE DURE/ OPERA TION PERFO RMED: SHERI EMILI MY SPEC #: [id number] RECD: 07/24-0 803 STATU S: SOUT REQ #: [id number] TRINA: 07/22-[address]: Rachel mayes,[facility] DO ENTER ED: 07/24-0 806 [...] ----- ----- ----- ----- -- Not Available [facility] [address] [place], [address], 07/25/2017 12:13:50 06/12/2006/14/2019 cultu re, throa t throat culture No growth . Not Available [facility] [address] [place], [address], 06/14/2019 09:08:54 06/12/2006/12/2019 rapid strep group A, throa t Result negati ve Not Available [address] [place], [address], 06/12/2019 13:29:39 06/12/2006/12/2019 rapid strep group A, throa t Internal Control Valid Not Available [address] [place], [address], 06/12/2019 13:29:39 06/12/2006/12/2019 rapid strep group A, throa t Lot # [id number] Not Available [address] [place], [address], 06/12/2019 13:29:39 06/12/2006/12/2019 rapid strep group A, throa t Exp. Date 2020 Not Available [facility] [address] [place], [address], 06/12/2019 13:29:39 Result Notes None recorded. Problems No Known Problems Procedures Surgical History Date Name Laterality Status Provider Name and Address Organization Details Recorded Time 7 appendectomy completed Hortencia Hanley [facility] 07/25/2017 13:56:33 Imaging Results None recorded. Procedure [...] Updated DateTime 07/31/2017 170.18 cm 20.4 kg/m2 36119.01 g 118 mm[Hg] 72 mm[Hg] Sandy Dubon MA [facility] 7 09:24:21 Date Recorded Body weight Body temperature Heart rate Oxygen saturation Oxygen saturation in Arterial blood by Pulse oximetry Systolic blood pressure Diastolic blood pressure Provider Name and Address Organization Details Last Updated DateTime 9 56762.2 9 g 99.1 [degF] 87 /min 98 % 98 % 126 mm[Hg] 68 mm[Hg] Elvia Pistorino [facility] 9 13:29:32 Social History None recorded. Functional Status None recorded. Mental Status None recorded. Family History Nothing Reported. Medical History No medical history recorded. Gynecological HistoryNo gynecological history recorded. Obstetrics History GPAL:G 0 P 0 0 0 0 Past Encounters Encounter ID Performer Location Encounter Start Date Encounter Closed Date Diagnosis/Indication Diagnosis SNOMED-CT Code Diagnosis ICD10 Code Diagnosis Note [id number] Chris mayes DO [facility] [address] [place] [address] NAIMA MARTÍNEZ [id number] 07/31/2017 09:12:45 07/31/2017 12:46:52 Postoperative visit 063744952 Z09 OK to D/C and follow up prn Path acute appendicit is [id number] [facility] [address] [place] [address] 06/12/2019 13:08:14 06/12/2019 14:41:48 Acute pharyngitis 282070087 J02.9 ? P resentatio n consistent with viral pharyngiti s. Rapid strep negative; sending culture and will call with results. Advise fluids, rest, Tylenol/Mo evans for fever and pain. Follow up with PCP in 2-3 days if symptoms persist or sooner if worsening. Impacted cerumen 4511828 6 H61.23 Cerumen removed with improvemen t [...] Garcia Member ID Guarantor Name 07/31/2017 1 [facility] [id number] Tiffany Mehtamelba [id number] Tiffany Mixon 06/12/2019 1 [facility] Tiffany Mixon [id number] Tiffany Mixon Notes Date Note Type Note Provider Name and Address Organization Details Recorded Time 07/31/2017 text/html 31 yo F presenting for lap appendectomy. She is doing well post operatively. Incision is C/D/I. Pain resolved. Tolerating diet. Having BM. Chris Ceja DO [address] [place] [address], [phone], [facility] 07/31/2017 11:57:59 06/12/2019 text/html 33/F [...] cough, no ear pain Helen Parker MD [address] [place] [address], [phone], [facility] 06/13/2019 05:52:51 OBGyn Episode No OBEpisode recorded.
== END 2024-10-15 11:06 | disposition home or self-care (01) ==
PROVIDERS: PCP Nurse Practitioner Family; Visit Provider Nurse Practitioner Family
DX: F10.10 Alcohol abuse, uncomplicated (principal); F41.1 Generalized anxiety disorder; E03.9 Hypothyroidism, unspecified; F33.1 Major depressive disorder, recurrent, moderate; R87.620 Atypical squamous cells of undetermined significance on cytologic smear of vagina (ASC-US)

== ENCOUNTER → 2024-10-15 10:26 | Outpatient (BNVA) | payer OTHER, SELFPAY | PROVIDERS: PCP Nurse Practitioner Family; Visit Provider Nurse Practitioner Family | DX: F10.10 Alcohol abuse, uncomplicated (principal); F41.1 Generalized anxiety disorder; E03.9 Hypothyroidism, unspecified; F33.1 Major depressive disorder, recurrent, moderate; R87.620 Atypical squamous cells of undetermined significance on cytologic smear of vagina (ASC-US) | CPT/HCPCS: 96127 ==

== ENCOUNTER 2024-12-16 12:19 | Outpatient (AMB) | payer OTHER, SELFPAY ==
--- NOTE | 2024-12-16 13:09 | MHC.PC.OV ---
Intake Visit Reasons: follow up Allergies No Known Allergies Allergy (Verified 12/16/24 13:10) Medication List - Last Reconciled 12/16/24 by MOISES Mcclure escitalopram oxalate 20 mg PO DAILY folic acid 1 mg PO DAILY indomethacin 25 mg PO TID PRN levothyroxine 25 mcg PO DAILY mecobalamin (vitamin B12) 1,000 mcg PO DAILY norethindrone-ethin estradiol 1-35 mg-mcg 1 tab PO DAILY Tobacco use date assessed: 10/15/24 Dental Screening Dental Screen Date: 10/15/24 HPI HPI Comments History of Present Illness Details Telehealth visit today for review CARYL, AUD. Called patient no answer LMOM Called her back again, she answered. states insane day at work, haven't stopped unable to do visit today offered to have staff reschedule, that would be great Message sent to front office staff to reschedule I did spend 5 minutes on this encounter, prepping the chart and calling the pt and arranging for f/u visit. [facility] Medical History (Updated 09/02/24 @ 15:42 by MOISES Mcclure) Anxiety Thyroid disorder Surgical History (Updated 09/02/24 @ 10:58 by Imtiaz Wren MA) History of appendectomy History of tonsillectomy Family History (Updated 09/02/24 @ 10:58 by Imtiaz Wren MA) Maternal Grandfather Substance abuse Sister Substance abuse Mother Cancer Hypertension Brother Cancer Asthma Father Cancer Hypertension Social History (Updated 09/02/24 @ 10:56 by Imtiaz Wren MA) Household Members: Spouse Both parents involved: No Caregiver staying overnight: No Housing: House Are you a primary nurse behavioral health care to a significant other at home: No Do you presently have visiting nurse or other home services: No 75 years or older and lives alone: No Alcohol intake: current Alcohol intake frequency: a few times a month Patient Tobacco Use Status: Current everyday Tobacco user Cigarettes Per Day: 10 Years Smoked: 19 Packs per year/per ci.50 e-Cigarette/Vaping Use: Never Used Second Hand Smoke Exposure: No Current occupational status: employed 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 Wayne Shelley, Rosalie Banks, Mike Banegas and colleagues, with an educational gary from [employer]. Physical exam (Primary Care) Tobacco/Smoking Status: Tobacco use Status Tobacco use date assessed 10/15/24 12/16/24 13:10 Patient Tobacco Use Status Current everyday Tobacco 12/16/24 13:10 e-Cigarette/Vaping Use Never Used 12/16/24 13:10 Thrive Assessment: Date of Thrive Assessment Date Thrive assessed 10/15/24 12/16/24 13:10 Telehealth Telehealth Telehealth Platform: [employer] Location of provider rendering services: practice address Location of patient: address on file Patient Identification confirmed using: Name, : Yes Telehealth method: voice only Patient verbally consented to treatment: Yes Patient verbally consented to billing insurance company: Yes Patient informed of any privacy concerns related to visit: Yes Minutes spent on Phone/Video with Pt.: 2 Coding Level of Care Code Tele Est Pt Level 1 (60227) Complex EM visit Add On G2211 Diagnoses CARYL (generalized anxiety disorder) F41.1 Assessment & Plan Assessment & Plan (1) CARYL (generalized anxiety disorder): Code(s): F41.1 - Generalized anxiety disorder Category: Medical Plan .
--- OUTSIDE RECORDS SUMMARY | 2024-12-16 14:42 | XMS_ITS | Data Portability ---
Author Organization [facility] Address [address] [place] [address] Care Team Providers Care Sales Account Coordinator Name Role Phone FAVIOLA GOODSON Primary Care Provider FAVIOLA GOOSDON Referring Provider [phone] Assessment No assessment recorded. Plan of Treatment Reminders Order Date Submit Date Provider Last Modified By Organization Details Last Modified Time Details Appointments None recorded . Lab rapid strep group A, throat 06/12/20 [email or web address] [facility], [address] [place], [address], 9 14:06:29 culture, throat 06/12/20 [facility] Patient Reg, [address] [place], [address], 9 09:08:54 Referral None recorded . Procedures [...] -- PATIE NT: DEBI NAQVI [id number] [place]: [facility] [place] #: [id number] AGE/S X: 31/F ROOM: RE07/[address]: Rachel mayes,[facility] DO : 12/13 BED: DIS: STATU S: DEP [facility] PROCE DURE/ OPERA TION PERFO RMED: SHERI EMILI MY SPEC #: [id number] RECD: 07/24-0 803 STATU S: SOUT REQ #: [id number] TRINA: 07/22-[address]: Rachel mayes,[facility] DO ENTER ED: 07/24-0 806 SP TYPE: [...] ----- ----- ----- ----- -- Not Available [facility] [address] [place], [address], 07/25/2017 12:13:50 06/12/2006/14/2019 cultu re, throa t throat culture No growth . Not Available [facility] [address] [place], [address], 06/14/2019 09:08:54 06/12/2006/12/2019 rapid strep group A, throa t Result negati ve Not Available [address] [place], [address], 06/12/2019 13:29:39 06/12/2006/12/2019 rapid strep group A, throa t Internal Control Valid Not Available [address] [place], [address], 06/12/2019 13:29:39 06/12/2006/12/2019 rapid strep group A, throa t Lot # [id number] Not Available [address] [place], [address], 06/12/2019 13:29:39 06/12/2006/12/2019 rapid strep group A, throa t Exp. Date 2020 Not Available [facility] [address] [place], [address], 06/12/2019 13:29:39 Result Notes None recorded. Problems No Known Problems Procedures Surgical History Date Name Laterality Status Provider Name and Address Organization Details Recorded Time 7 appendectomy completed Hortencia Hanley [facility] 07/25/2017 13:56:33 Imaging Results None recorded. [...] Updated DateTime 07/31/2017 170.18 cm 20.4 kg/m2 22780.01 g 118 mm[Hg] 72 mm[Hg] Sandy Dubon MA [facility] 7 09:24:21 Date Recorded Body weight Body temperature Heart rate Oxygen saturation Oxygen saturation in Arterial blood by Pulse oximetry Systolic blood pressure Diastolic blood pressure Provider Name and Address Organization Details Last Updated DateTime 9 07767.2 9 g 99.1 [degF] 87 /min 98 % 98 % 126 mm[Hg] 68 mm[Hg] Elvia Pistorino [facility] 9 13:29:32 Social History None recorded. Functional Status None recorded. Mental Status None recorded. Family History Nothing Reported. Medical History No medical history recorded. Gynecological HistoryNo gynecological history recorded. Obstetrics History GPAL:G 0 P 0 0 0 0 Past Encounters Encounter ID Performer Location Encounter Start Date Encounter Closed Date Diagnosis/Indication Diagnosis SNOMED-CT Code Diagnosis ICD10 Code Diagnosis Note [id number] Chris mayes DO [facility] [address] [place] [address] NAIMA MARTÍNEZ [phone] 07/31/2017 09:12:45 07/31/2017 12:46:52 Postoperative visit 366751435 Z09 OK to D/C and follow up prn Path acute appendicit is [id number] Helen [facility] [address] [place] [address] 06/12/2019 13:08:14 06/12/2019 14:41:48 Acute pharyngitis 220926911 J02.9 ? P resentatio n consistent with viral pharyngiti s. Rapid strep negative; sending culture and will call with results. Advise fluids, rest, Tylenol/Mo evans for fever and pain. Follow up with PCP in 2-3 days if symptoms persist or sooner if worsening. Impacted cerumen 4255658 6 H61.23 Cerumen removed with improvemen t [...] Garcia Member ID Guarantor Name 07/31/2017 1 [facility] [id number] Tiffany Mehtamelba [id number] Tiffany Mixon 06/12/2019 1 [facility] Tiffany Mixon [id number] Tiffany Mixon Notes Date Note Type Note Provider Name and Address Organization Details Recorded Time 07/31/2017 text/html 31 yo F presenting for lap appendectomy. She is doing well post operatively. Incision is C/D/I. Pain resolved. Tolerating diet. Having BM. Chris Ceja DO [address] [place] [address], [phone], [facility] 07/31/2017 11:57:59 06/12/2019 [...] cough, no ear pain Helen Parker MD [address] [place] [address], [phone], [facility] 06/13/2019 05:52:51 OBGyn Episode No OBEpisode recorded.
--- OUTSIDE RECORDS SUMMARY | 2024-12-16 14:42 | XMS_ITS | Clinical Summary ---
Author Organization [facility] [address] [place] [address] [place] [phone] Phone Care Team Providers Care Set Key Driver Name Role Phone Kofi Carey MD Primary Care Provider [phone] Allergies No known active allergies Medications norethindrone [...] Administration Dates Next Due DTP 02/26/1993, 9,08/01/1988,1987,03/04/1988 [id number] (Pentacel) 2mo to less than 5yo 07/10/1989 [...] 2008 PROCEDURE: HISTORICAL D&C APPENDECTOMY 07/2017 PROCEDURE: [place] APPENDECTOMY Medical History Medical History Date Comments [...] care for your loved ones. For example, exceptional children teacher assistant or elderly care for an older adult? [...] Health Maintenance Due Date Last Done Comments Hepatitis A Vaccines (1 of 2 - Risk 2-dose series) 12/13/2006 Pneumococcal Vaccine: Pediatrics (0 to 5 Years) and At-Risk Patients (6 to 64 Years) (1 of 2 - PCV) 12/13/2006 COVID-19 Vaccine ( season) 2024 08/21/2021, 08/04/2021, 09/29/2020, Additional history exists Influenza Vaccine (Season Ended) 2025 09/15/2023, 08/04/2021, 05/06/2011 Depression Screening 06/25/2025 06/25/2024 Social [...] Completed 07/02/2019 Hepatitis C Screening Completed 03/07/2022 Meningococcal ACWY Vaccine Aged Out N o longer eligible based on patient's age to complete this topic Meningococcal B Vaccine Aged Out No l onger eligible based on patient's age to complete [...] Cancer Screening: HPV No Interpretation , Abstracted [facility] Provider HEALTH MAINTENANCE Final Result * Hepatitis C Screening (03/07/2022) [facility] Hepatitis C Screening Abstracted [facility] Provider HEALTH MAINTENANCE Final Result * Lipid panel (03/07/2022) [facility] LDL/HDL Ratio 2 0 - 4 Triglycerides 82 0 - 150 mg/dL Cholesterol 185 0 - 200 mg/dL HDL 76 >=40 mg/dL LDL Cholesterol 93 0 - 100 mg/dL Blood Venous blood specimen / Unknown [facility] Provider LAB BLOOD ORDERABLES Jennifer l Result * HIV Screening (07/02/2019) [facility] HIV Screening Abstracted [facility] Provider HEALTH MAINTENANCE Final Result from Last 3 Months or Most Recently Relevant to Health Maintenance Insurance [employer] Care Teams Set Key Driver Relationship Specialty Start Date End Date Kofi Carey MD [address] [place] [address] OR PCP - General Internal Medicine 12/27/21
--- OUTSIDE RECORDS SUMMARY | 2024-12-16 14:42 | XMS_ITS ---
Author Name [facility] Organization Unknown Care Team Organization Name Specialty Phone Email Start Date End [facility] 01/31/2024
== END 2024-12-16 13:22 | disposition home or self-care (01) ==
LOC: HO.HMCFM 12:19
PROVIDERS: PCP Nurse Practitioner Family; Visit Provider Nurse Practitioner Family
DX: F41.1 Generalized anxiety disorder (principal)

== ENCOUNTER → 2024-12-16 12:19 | Outpatient (BNVA) | payer OTHER, SELFPAY | PROVIDERS: PCP Nurse Practitioner Family; Visit Provider Nurse Practitioner Family ==

== ENCOUNTER 2025-01-07 13:41 | Outpatient (AMB) | payer OTHER, SELFPAY ==
--- NOTE | 2025-01-07 13:35 | MHC.PC.OV ---
Intake Visit Reasons: FU CARYL Intake Note: Telehealth follow up on CARYL Concrete Technician Required: No Allergies No Known Allergies Allergy (Verified 01/07/25 13:40) Medication List - Last Reconciled 01/07/25 by NANCY Mcclure- escitalopram oxalate 20 mg PO DAILY folic acid 1 mg PO DAILY indomethacin 25 mg PO TID PRN levothyroxine 25 mcg PO DAILY mecobalamin (vitamin B12) 1,000 mcg PO DAILY norethindrone-ethin estradiol 1-35 mg-mcg 1 tab PO DAILY Tobacco use date assessed: 01/07/25 Dental Screening Dental Screen Date: 01/07/25 Did you have a dental visit in the last 12 months?: Yes Did you have a dental problem in the last 6 months where you did not have access to dental care?: No Was dental information given to patient?: Patient has dentist HPI HPI Comments History of Present Illness Details 39-year-old female current smoker, hypothyroid, subacromial bursitis bilat shoulders GERD, major depressive disorder, alcohol abuse Status post appendectomy, tonsillectomy, D and C Social History - 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 - Lives with her , who is supportive of her health goals. 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 - Recent flare-up of bursitis in the left shoulder lasting four weeks, with episodes of severe immobility. Went to walk in 12/19/24 given naproxen w/ no relief. Note reviewed. Started taking Indomethacin, resulting in gradual improvement. - Bilateral knee pain responding to Indomethacin treatment. - Unsuccessful previous treatment with Naproxen. Mood and Etoh Use: Since increasing escitalopram, developed nightmares roughly two weeks post dosage increase. Insomnia. Wants to decrease this medication. Denies SI/HI. Drinking is the same. Assessment and Plan 1. Bursitis of the shoulders The use of Indomethacin is proving beneficial in alleviating symptoms. I have prescribed a 90-day supply to ensure therapeutic continuity and facilitate the patient's functional recovery. 2. Knee pain bilat Continuing Indomethacin treatment for the patient's knee symptoms is part of our strategy given its efficacy thus far. 3. Sleep disturbances with nightmares due to medications The patient's experience with intensified nightmares necessitates reducing the lexapro from 20 mg QD to 15mg QD. Offered to start something for nightmares and keep dos the same but she fears side effects.Wishes to undergo lifestyle modifications to further support mental health. 4. Etoh Use - active. RTO via telehealth in 6-8 weeks to du on med changes,sooner PRN Telehealth Attestation The visit was conducted via a telehealth platform, and all findings documented are accurate reflections of the conversation with the patient. The patient has been explained that this is an interactive (audio/video) telehealth encounter and what that consists of. The patient understands and wishes to proceed. Babyoye platform was used. Total time spent caring for the patient today was 15 minutes. This includes time spent before the visit reviewing the chart, time spent during the visit, and time spent after the visit on documentation, reviewing laboratory results, diagnostic imaging, medications, performing a medically necessary evaluation, counseling on diagnoses, care coordination, ordering appropriate tests, ordering appropriate medications, review of tests performed by other providers, reporting test results with the patient, communication with other healthcare providers. [facility] Medical History (Updated 01/07/25 @ 14:09 by Nereyda Dang, [facility]) Anxiety Thyroid disorder Surgical History (Updated 09/02/24 @ 10:58 by Imtiaz Wren MA) History of appendectomy History of tonsillectomy Family History (Updated 09/02/24 @ 10:58 by Imtiaz Wren MA) Maternal Grandfather Substance abuse Sister Substance abuse Mother Cancer Hypertension Brother Cancer Asthma Father Cancer Hypertension Social History (Updated 09/02/24 @ 10:56 by Imtiaz Wren MA) Household Members: Spouse Both parents involved: No Caregiver staying overnight: No Housing: House Are you a primary clinical care coordinator to a significant other at home: No Do you presently have visiting nurse or other home services: No 75 years or older and lives alone: No Alcohol intake: current Alcohol intake frequency: a few times a month Patient Tobacco Use Status: Current everyday Tobacco user Cigarettes Per Day: 10 Years Smoked: 19 e-Cigarette/Vaping Use: Never Used Second Hand Smoke Exposure: No Current occupational status: employed 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 1. Little interest or pleasure in doing things: not at all 2. Feeling down, depressed, or hopeless: not at all 3. Trouble falling or staying asleep, or sleeping too much: nearly every day 4. Feeling tired or having little energy: not at all 5. Poor appetite or overeating: not at all 6. Feeling bad about yourself - or that you are a failure or have let yourself or your family down: not at all 7. Trouble concentrating on things, such as reading the newspaper or watching television: not at all 8. Moving or speaking so slowly that other people could have noticed. Or the opposite - being so fidgety or restless that you have been moving around a lot more than usual: not at all 9. Thoughts that you would be better off or of hurting yourself in some way: not at all Total score: 3 Depression Screening Interpretation: Negative Depression Screening Done: Yes 61010 - PHQ-9 Billing: Yes Source: Developed by Drs. Wayne Shelley, Rosalie [place], Mike Banegas and colleagues, with an educational gary from [employer]. Thrive Questionnaire Date Thrive assessed: 01/07/25 I am a: Patient What is your living situation today?: I have a steady place to live Within the past 12 months, did the food you bought not last and you didn't have the money to get more?: Never true Within the past 12 months, did you worry whether your food would run out before you got money to buy more?: Never true Do you have trouble paying for medicines?: No Do you have trouble getting transportation to medical appointments?: No Do you have trouble paying your heating and electricity bill?: No Do you have trouble taking care of your child, family member or friend?: No Do you have trouble with day-to-day activities such as bathing, preparing meals, shopping, managing finances, etc.?: No Are you currently unemployed and looking for a job?: No Are you interested in more education?: No THRIVE Score: 0 CARYL-7 AMB Questionnaire CARYL-7 Date CARYL - 7 assessed: 01/07/25 Feeling nervous, anxious, or on edge: 0 = Not at all Not being able to stop or control worryin = Not at all Worrying too much about different things: 0 = Not at all Trouble relaxin = Not at all Being so restless that it is hard to sit still: 0 = Not at all Becoming easily annoyed or irritable: 1 = Several days Feeling afraid as if something awful might happen: 0 = Not at all Total CARYL-7 score (0-4 normal; 5-9 mild; 10-14 moderate; 15-21 severe): 1 Source: Developed by Drs. Wayne Shelley, Rosalie [place], Mike Banegas and colleagues, with an educational gary from [employer]. CARYL-7 Assessment Billing CARYL-7 Assessment Tool: CARYL-7 Assessment 20130 Physical exam (Primary Care) Tobacco/Smoking Status: Tobacco use Status Tobacco use date assessed 01/07/25 01/07/25 13:40 Patient Tobacco Use Status Current everyday Tobacco 01/07/25 13:40 e-Cigarette/Vaping Use Never Used 01/07/25 13:40 PHQ-9: PHQ-9 Score PHQ-9: Total score 3 01/07/25 13:40 Depression Screening Interpretation: Negative Thrive Assessment: Date of Thrive Assessment Date Thrive assessed 01/07/25 01/07/25 13:40 Telehealth Telehealth Telehealth Platform: [facility] Location of provider rendering services: practice address Location of patient: address on file Patient Identification confirmed using: Name, : Yes Telehealth method: voice only Patient verbally consented to treatment: Yes Patient verbally consented to billing insurance company: Yes Patient informed of any privacy concerns related to visit: Yes Minutes spent on Phone/Video with Pt.: 11 Coding Level of Care Code Tele Est Pt Level 2 (89335) Complex EM visit Add On G2211 Diagnoses CARYL (generalized anxiety disorder) F41.1 Moderate episode of recurrent major depressive disorder F33.1 Major depression episode severity: moderate Pain of both shoulder joints M25.511; M25.512 Joint pain location: shoulder Laterality: bilateral Alcohol abuse F10.10 Additional Codes CARYL-7 Assessment Billing - CARYL-7 Assessment Tool: CARYL-7 Assessment 49599 ([id number]) PHQ-9 - 53248 - PHQ-9 Billing: Yes ([id number]) Assessment & Plan Assessment & Plan (1) CARYL (generalized anxiety disorder): Code(s): F41.1 - Generalized anxiety disorder Category: Medical (2) MDD (major depressive disorder), recurrent episode: Code(s): F33.9 - Major depressive disorder, recurrent, unspecified Category: Medical Qualifiers: Major depression episode severity: moderate Qualified Code(s): F33.1 - Major depressive disorder, recurrent, moderate (3) Joint pain: Comment: bilat shoulders, L > R Both knees Code(s): M25.50 - Pain in unspecified joint Category: Medical Qualifiers: Joint pain location: shoulder Laterality: bilateral Qualified Code(s): M25.511 - Pain in right shoulder; M25.512 - Pain in left shoulder (4) Alcohol abuse: Code(s): F10.10 - Alcohol abuse, uncomplicated Category: Social Hx Plan . Medications: New escitalopram oxalate 15 mg (1.5 x 10 mg) PO DAILY 45 tabs 1RF Refilled indomethacin administer with food or milk 25 mg PO TID PRN 90 caps 1RF pain (scale score 1-3) Discontinued escitalopram oxalate Discontinued Reason: Patient Completed Course 20 mg PO DAILY 30 tabs 1RF Patient Instructions: National Suicide and Crisis Lifeline: Available 24 hours a day, 7 days a week, 365 days a year Dial 618 with any telephone to speak to someone immediately [facility] (Mental / Behavioral health therapist: [address] [place], [place] [id number] [facility]: [address] [place] [address] Open from 10am - 12pm (walk ins welcome) [facility] Crisis Services: [address] [place] [address] Walk in hours from 10am - 12pm Behavioral health Network: [address] [place] [address] [address] [place] [address] Monday through Monday 8am - 8pm Monday and Monday 9am - 5pm Crisis Hotlines Suicide prevention, domestic violence, and other crisis hotlines for youth, young adults, and their friends and families. [facility]: [facility] Safeline helps youth who have run away, are thinking about running away, or who already ran away but are ready to come home. Parents and guardians can also contact the hotline if they are worried about their child running away or if their child has already left home. The hotline is available 24 hours a day, seven days a week. Youth, parents, and guardians can also use the online chat feature on the [facility]'s website to ask for help and get support, [place] [address]. [facility] National Suicide Prevention Lifeline: The [place] Suicide Prevention Lifeline is a network of local crisis centers that are available 13/03 to provide support for youth and adults who are in any kind of emotional crisis. In addition to the main hotline number listed above, there are several other numbers to call depending on your needs: Yoruba Language: Deaf and Hard of Hearin1-656.577.9609 Veterans: Disaster Distress: Anyone can also use their online chat feature on their website. [place] Suicide Prevention Lifeline [facility] Helpline: The [facility] Helpline is available to anyone in [place] who is need of emotional support. Anyone can call or text the helpline to receive help from specially trained volunteers. [place] high school and college students can also get online support through the IMH[employer]_ program. For high school students, volunteers ages 15-18 are available Monday- from 6-9PM. For college students, [employer]_ is available Monday-Monday from 5-9PM. The Paul Project - The Paul Project is a 13/03 crisis intervention and suicide prevention hotline for LGBTQ youth. Youth can also text Paul to for support, or use the online chat feature on the Paul Project's website. [employer] is available Monday-Monday between 3-10PM. [employer]Chat is available seven days a week between 3-10PM. SafeLink: SafeLink is for anyone who is being affected by domestic violence or dating violence. Volunteers at [employer] speak Amharic and Yoruba, and [employer] also has a service that can provide translation in more than 130 languages. TTY:
--- OUTSIDE RECORDS SUMMARY | 2025-01-07 14:53 | XMS_ITS | Data Portability ---
Author Organization [facility] Address [address] [place] [address] Care Team Providers Care Poured Pipe Maker Name Role Phone GIOVANI DENNEY Primary Care Provider Assessment Encounter Date Assessment Date Assessment LastModified by Organization Details LastModified Time 12/18/2024 12/18/2024 My supervising provider is Dr Parker for this visit and Dr Parker was not present in the office during this office visit. I was not present in the office and not readily available for any questions or concerns. I have reviewed the history, physical and assessment of this encounter and agree with the treatment plan. Dr. Elena [email or web address] Not available 12/19/2024 06:21:01 Plan of Treatment Reminders Order Date Submit Date Provider Last Modified By Organization Details Last Modified Time Details Appointments None recorded. Lab rapid strep group A, throat 2018 019 [email or web address] [facility], [address] [place], [address], 9 14:06:29 culture, throat 2018 019 [facility] Patient [facility], [address], [place], [address], 9 09:08:54 Referral None recorded. Procedures None recorded. Surgeries None recorded. Imaging None recorded. Medication Orders naproxen 500 mg tablet 2024 025 [facility] #[id number], [address] [place], [address], 5 10:35:52 Patient TargetsNo targets recorded. Patient Instructions Encounter Date Encounter Id Patient Instructions Last Modified By Organization Details Last Modified Time 12/18/2024 [id number] You have had an Urgent Care Visit which is designed to address acute issues. It does not represent an exhaustive evaluation of your symptom complex, but is an attempt to treat and manage the most likely cause of your most pressing physical issues. If you are not improved in the time frame that we have discussed, please seek the advice of your PCP who is in a position to order further diagnostic testing and possible specialist consultation. If you are rapidly deteriorating despite the treatment recommendations please do not wait to see your PCP and do proceed to the closest ER where a comprehensive evaluation including consideration to lab and other diagnostic testing as well as consultation is more expeditiously accessible. If you were prescribed medications they have been directly submitted to your pharmacy on file. Please make sure you finish all your medications and if you develop major side effects related to them please do stop taking them and check with your PCP to see if you need to get an alternative medication. If labs or xray were ordered, we will call you with the results if there is any change to your plan of care. You have had an Urgent Care Visit which is designed to address acute issues. It does not represent an exhaustive evaluation of your symptom complex, but is an attempt to treat and manage the most likely cause of your most pressing physical issues. [email or web address] Not available 12/18/2024 10:36:58 Reason for Referral None Reported. Results Created Date Observation Date Name Description Value Unit Range Abnormal Flag Note LastModifiedBy Organization Detail LastModifiedTime 07/22/20 17 07/22/2017 surgi bryce patho logy study surgical ----- ----- ----- ----- ----- ----- ----- ----- ----- ----- ----- ----- ----- ----- ----- ----- ----- ----- -- YARIEL NT: DEBI NAQVI [id number] LOC: [facility] U #: [id number] AGE/S X: 31/F ROOM: RE07/[address]: Eder Alex irene DO : 12/13 BED: DIS: STATU S: DEP [facility] PROCE DURE/ OPERA TION PERFO RMED: SHERI CHOPRA SPEC #: [id number] RECD: 07/24-0 803 STATU S: GABBY REQ #: [id number] TRINA: 07/22-[address]: Rachel mayesAnaidulises irene DO ENTER ED: 07/24-0 806 SP TYPE: Surgi bryce OTHR DR: Ulises Hager File TISSU E:Ronni endix ----- ----- ----- ----- ----- ----- ----- ----- ----- ----- ----- ----- ----- ----- ----- ----- ----- ----- -- Final Diagn osis SHERI GRIMALDORONNILORRAINE EMILI MY: - Acute appen dicit is with peria ppend iciti s. Gross Exami natio n Recei meena in forma jamal label ed Krist en Michelle mary, 12-13 and appe ndix . It consi sts of a stapl ed sheri grimaldo with its attac hed appen dicea l fat, the appen re measu ring 7 cm in lengt h by 1.0 cm in maxim um diame ter. The attac hed fatty appen dicea l fat measu res 1.5 cm in maxim al thick ness. Almos t the entir e seros al surfa ce is cover ed by fibri rubens ulent exuda te. The tip of the appen re is inked and the speci men is RS, two casse ttes as follo ws: casse tte 1 = longi tudin al secti on and resec tion tessy n casse tte 2 = repre senta tive cross -sect ions. (MF) 07-24 MIRA Turk MD 07/25 1212 ----- ----- ----- ----- ----- ----- ----- ----- ----- ----- ----- ----- ----- ----- ----- ----- ----- ----- -- Not Available [facility] [address] [place], [address], 07/25/2017 12:13:50 06/12/2006/14/2019 cultu re, throa t throat culture No growth . Not Available [facility] [address] [place], [address], 06/14/2019 09:08:54 06/12/2006/12/2019 rapid strep group A, throa t Result negati ve Not Available [address] [place], [address], 06/12/2019 13:29:39 06/12/2006/12/2019 rapid strep group A, throa t Internal Control Valid Not Available [address] [place], [address], 06/12/2019 13:29:39 06/12/2006/12/2019 rapid strep group A, throa t Lot # [id number] 0005 Not Available [address] [place], [address], 06/12/2019 13:29:39 06/12/2006/12/2019 rapid strep group A, throa t Exp. Date 2020 Not Available [address] [place], [address], 06/12/2019 13:29:39 Result Notes None recorded. Problems No Known Problems Procedures Surgical History Date Name Laterality Status Provider Name and Address Organization Details Recorded Time 7 appendectomy completed Hortencia Hanley [facility] 07/25/2017 13:56:33 Imaging Results None recorded. Procedure Notes None recorded. Medical Equipment None Reported. Allergies No known drug allergies Medications Name Sig Start Date Stop Date Status Note LastModified by Organization Details LastModified Time hydrocodone 5 mg-acetamin ophen 325 mg tablet 07/31 completed Not Available Not Available Not Available levothyroxi ne 25 mcg tablet TAKE 1 TABLET BY MOUTH 1 TIME EACH DAY BEFORE BREAKFAST . active Not Available Not Available No t Available indomethaci n 25 mg capsule PLEASE SEE ATTACHED FOR DETAILED DIRECTION S active Not Available Not Available No t Available folic acid 1 mg tablet TAKE 1 TABLET BY MOUTH EVERY DAY active Not Available Not Available No t Available norethindro ne (contracept michell) 0.35 mg tablet TAKE 1 TABLET BY MOUTH EVERY DAY active Not Available Not Available No t Available naproxen 500 mg tablet TAKE 1 TABLET TWICE A DAY BY ORAL ROUTE NEEDED, FOR SHOULDER PAIN. active Not Available Not Available No t Available Microgestin Fe 1.5/30 (28) 1.5 mg-30 mcg (21)/75 mg (7) tablet active Not Available Not Available N ot Available escitalopra m 10 mg tablet Take 1 tablet every day by oral route. active Not Available Not Available No t Available escitalopra m 20 mg tablet TAKE 1 TABLET BY MOUTH DAILY active Not Available Not Available No t Available escitalopra m 5 mg tablet TAKE 1 TABLET BY MOUTH EVERY DAY active Not Available Not Available No t Available levothyroxi ne active Not Available Not Available Not Available folic acid active Not Available Not Av ailable Not Available Vitals Date Recorded Body temperature Heart rate Oxygen saturation Oxygen saturation in Arterial blood by Pulse oximetry Systolic blood pressure Diastolic blood pressure Provider Name and Address Organization Details Last Updated DateTime 5 97.6 [degF] 88 /min 96 % 96 % 114 mm[Hg] 70 mm[Hg] Maria Del Rosario Moulton [place] [facility] 5 10:28:18 Date Recorded Body height Body mass index (BMI) Body weight Systolic blood pressure Diastolic blood pressure Provider Name and Address Organization Details Last Updated DateTime 07/31/2017 170.18 cm 20.4 kg/m2 03939.01 g 118 mm[Hg] 72 mm[Hg] Sandy Dubon [place] [facility] 7 09:24:21 Date Recorded Body weight Body temperature Heart rate Oxygen saturation Oxygen saturation in Arterial blood by Pulse oximetry Systolic blood pressure Diastolic blood pressure Provider Name and Address Organization Details Last Updated DateTime 9 07432.2 9 g 99.1 [degF] 87 /min 98 % 98 % 126 mm[Hg] 68 mm[Hg] Elvia Lisa [facility] 9 13:29:32 Social History None recorded. Functional Status None recorded. Mental Status None recorded. Family History Nothing Reported. Medical History No medical history recorded. Gynecological HistoryNo gynecological history recorded. Obstetrics History GPAL:G 0 P 0 0 0 0 Immunizations Vaccine Type Date Status Note Provider Nam e and Address Organization Details Recorded Time Influenza, split virus, quadrivalent, preservative 4 completed Helen Parker MD [address] [place], [place] [address], [address], [facility] 12/19/2024 06:20:49 Influenza, MDCK, quadrivalent, preservative 1 completed Helen Parker MD [address] [place] [address] [place], [address], [facility] 12/19/2024 06:20:49 MMR 1 completed Helen Parker MD [address] [place] [address] [place], [address], [facility] 12/19/2024 06:20:49 MMR 9 completed Helen Parker MD [address] [place] [address] [place], [address], [facility] 12/19/2024 06:20:49 COVID-19, mRNA, LNP-S, PF, 30 mcg/0.3 mL dose 2 completed Helen Parker MD [address] [place] [address] [place], [address], [facility] 12/19/2024 06:20:49 COVID-19, mRNA, LNP-S, PF, 30 mcg/0.3 mL dose 1 completed Helen Parker MD [address] [place] [address] [place], [address], [facility] 12/19/2024 06:20:49 COVID-19, mRNA, LNP-S, PF, 30 mcg/0.3 mL dose 1 completed Helen Parker MD [address] [place] [address] [place], [address], [facility] 12/19/2024 06:20:49 COVID-19, mRNA, LNP-S, PF, 30 mcg/0.3 mL dose 1 completed Helen Parker MD [address] [place] [address] [place], [address], [facility] 12/19/2024 06:20:49 Tdap 2 completed Helen Parker MD [address] [place] [address] [place], [address], [facility] 12/19/2024 06:20:49 Tdap 1 completed Helen Parker MD [address] [place], [place] [address], [address], [facility] 12/19/2024 06:20:49 DTP 3 completed Helen Parker MD [address] [place], [place] [address], [address], [facility] 12/19/2024 06:20:49 DTP 8 completed Helen Parker MD [address] [place], [place] [address], [address], [facility] 12/19/2024 06:20:49 DTP 8 completed Helen Parker MD [address] [place] [address] [place], [address], [place] [facility] 12/19/2024 06:20:49 DTP 9 completed Helen Parker MD [address] [place] [address] [place], [address], [facility] 12/19/2024 06:20:49 DTP 8 completed Helen Parker MD [address] [place] [address] [place], [address], [facility] 12/19/2024 06:20:49 OPV 3 completed Helen Parker MD [address] [place] [address] [place], [address], [facility] 12/19/2024 06:20:49 OPV 8 completed Helen Parker MD [address] [place] [address] [place], [address], [facility] 12/19/2024 06:20:49 OPV 8 completed Helen Parker MD [address] [place] [address] [place], [address], [facility] 12/19/2024 06:20:49 OPV 9 gabriela Parker MD [address] [place] [address] [place], [address], [facility] 12/19/2024 06:20:49 Influenza, split virus, trivalent, preservative 1 completed Helen Parker MD [address] [place] [address] [place], [address], [facility] 12/19/2024 06:20:49 Influenza, split virus, trivalent, preservative 4 gabriela Parker MD [address] [place] [address] [place], [address], [facility] 12/19/2024 06:20:49 HPV, quadrivalent 3 completed Helen Parker MD [address] [place] [address] [place], [address], [facility] 12/19/2024 06:20:49 HPV, quadrivalent 3 completed Helen Parker MD [address] [place] [address] [place], [address], [facility] 12/19/2024 06:20:49 HPV, quadrivalent 2 completed Helen Parker MD [address] [place] [address] [place], [address], [facility] 12/19/2024 06:20:49 Td (adult), 2 Lf tetanus toxoid, preservative free, adsorbed 9 gabriela Parker MD [address] [place] [address] [place], [address], [facility] 12/19/2024 06:20:49 Hep B, adolescent or pediatric 6 completed Helen Parker MD [address] [place] [address] [place], [address], [facility] 12/19/2024 06:20:49 Hep B, adolescent or pediatric 7 gabriela Parker MD [address] [place] [address] [place], [address], [facility] 12/19/2024 06:20:49 Hep B, adolescent or pediatric 6 gabriela Parker MD [address] [place] [address] [place], [address], [facility] 12/19/2024 06:20:49 Hib (HbOC) 9 gabriela Parker MD [address] [place], [place] [address], [address], [facility] 12/19/2024 06:20:49 Past Encounters Encounter ID Performer Location Encounter Start Date Encounter Closed Date Diagnosis/Indication Diagnosis SNOMED-CT Code Diagnosis ICD10 Code Diagnosis Note [id number] Chris mayes DO [facility] [address] [place] [address] 07/31/2017 09:12:45 07/31/2017 12:46:52 Postoperative visit 772367965 Z09 OK to D/C and follow up prn Path acute appendicit is [id number] Kane Daniel PA-C [address] [address] 06/12/2019 13:08:14 06/12/2019 14:41:48 Acute pharyngitis 943807325 J02.9 ? P resentatio n consistent with viral pharyngiti s. Rapid strep negative; sending culture and will call with results. Advise fluids, rest, Tylenol/Mo evans for fever and pain. Follow up with PCP in 2-3 days if symptoms persist or sooner if worsening. Impacted cerumen 6645208 6 H61.23 Cerumen removed with improvemen t to symptoms, no signs/symp toms of secondary infxn. Discussed use of OTC kits to help prevent impaction. Advised against use of q-tips. F/u if symptoms recur. [id number] EBENEZER RODRIGUES NP [address] [address] 12/18/2024 10:16:57 12/18/2024 10:51:03 Pain of left shoulder region 0636712506 M25.512 Suspect bursitis vs muscle sprain/str ain.Pain localized to the top of the shoulder radiating into shoulder blade L.Recommen ded xray, patient declined, declined prednisone Offered naproxen which patient is in agreement to.Recomme nded PCP f/u may benefit from ortho consult if symptoms persist. No injury/tra dorie. Health Concerns Section Related Observation LastModified by Organization Detai ls LastModified Time None Recorded Concern Status LastModified by Organization Details LastModified Time None Recorded Advance Directives Directive None Recorded Payers Insurance Date Sequence Insurance Name Policy Number Policy Garcia Covered Member ID Garcia Member ID Guarantor Name 12/19/2024 1 [facility] Tiffany Mixon [id number] Tiffany Mixon 12/18/2024 1 [facility] [id number] Tiffany Mixon [id number] Tiffany Mixon 12/18/2024 1 [facility] Tiffany Mixon [id number] Tiffany Mixon Notes Date Note Type Note Provider Name and Address Organization Details Recorded Time 07/31/2017 text/html 31 yo F presenting for lap appendectomy. She is doing well post operatively. Incision is C/D/I. Pain resolved. Tolerating diet. Having BM. Chris Ceja, [address] [place], [address], [facility] 07/31/2017 11:57:59 06/12/2019 text/html 33/F presents fo r sore throat. Reports: - 3d sore throat, fatigue, body aches - still has appetite - minimal runny nose, no cough - tonsils removed 10 yrs ago, no strep since then - smoker - PCP Dr. Faviola Potts ROS: sore throat, fatigue, body aches, minimal rhinorrhea, no fever, no cough, no ear pain Helen Parker MD [address] [place] [address], [address], [facility] 06/13/2019 05:52:51 12/18/2024 text/html 39 y/o female presents today with pain to the left shoulder. Pt states she has bursitis in both shoulders, however, last night she may have moved wrong and triggered pain. DMB Patient reports history of bursitis in both shoulder.Reports sharp pain in left shoulder after moving wrong.Was using lidoderm patches without much relief. No injury or trauma, no falls. Helen Parker MD [address] [place] [address], [address], [facility] 12/19/2024 06:21:04 OBGyn Episode No OBEpisode recorded.
--- OUTSIDE RECORDS SUMMARY | 2025-01-07 14:53 | XMS_ITS | Clinical Summary ---
Author Organization [facility] [address] [place] [address] [place] [address] Phone Care Team Providers Care Shade Cutter Name Role Phone Kofi Carey MD Primary Care Provider Allergies No known active allergies Medications norethindrone (TAAMRA,SAURABH,H EATHER,MICRONOR ) 0.35 mg tablet Take 1 Tablet by mouth daily. 4 Active cyanocobalamin (VITAMIN B-12) 1,000 mcg tablet Take 1 Tablet by mouth daily. 2 Active escitalopram (LEXAPRO) 5 mg tablet Take 1 tablet (5 mg total) by mouth 1 (one) time each day. 90 each 4 Active levothyroxine (SYNTHROID, LEVOTHROID) 25 mcg tablet TAKE 1 TABLET BY MOUTH 1 TIME EACH DAY BEFORE BREAKFAST. 30 tablet 5 Active folic acid (FOLVITE) 1 mg tablet TAKE 1 TABLET BY MOUTH EVERY DAY 90 tablet 1 5 Active levothyroxine (SYNTHROID, LEVOTHROID) 25 mcg tablet Take 1 tablet (25 mcg total) by mouth 1 (one) time each day before breakfast. 90 tablet 1 4 12/17/19 25 Discontinued Active Problems Problem Noted Date Diagnosed Date Elevated TSH 05/27/2024 Cigarette smoker 03/07/2022 Subacromial bursitis of both shoulders 2 Immunizations Name Administration Dates Next Due DTP 02/26/1993, 9,08/01/1988,1987,03/04/1988 [id number]-[id number] (Pentacel) 2mo to less than 5yo 07/10/1989 HPV, Quadrivalent 02/06/2013,10/01/2012,07/26/20 Hepatitis B Pediatric (Enger ix B; Recombivax HB) to less than 20 yo 05/07/1997,07/30/1996,05/02/1996 Influenza trivalent, with preservative (Fluzone; Afluria) 6mo and older 05/06/2011 MMR, measles mumps and rubel la Live (Priorix; M-M-R II) 12mo and older 04/14/1999,12/24/1990 OPV 02/26/1993, 9,05/25/1988,1987 Groupiter SARS-CoV-2 COVID-19, mRNA, LNP-S, preservative free 08/21/2021 Td Tetanus diptheria (Tdvax) 7yo and older 04/14/1999 Tdap Tetanus diptheria acell ular pertussis (Boostrix; Adacel) 7yo and older 03/07/2022,05/06/2011 Surgical History Surgery Date Site/Laterality Comments TONSILLECTOMY 08/27/10 PROCEDURE: HISTORICAL TONSILLECTOMY OTHER SURGICAL HISTORY 2008 PROCEDURE: HISTORICAL D&C APPENDECTOMY 07/2017 PROCEDURE: [place] APPENDECTOMY Medical History Medical History Date Comments [...] care for your loved ones. For example, early childhood worker or elderly care for an older adult? [...] Results * Cervical Cancer Screening: HPV (01/31/2024) [facility] Cervical Cancer Screening: HPV No Interpretation , Abstracted Historical Provider HEALTH MAINTENANCE Final Result * Hepatitis C Screening (03/07/2022) Pathologist [facility] Hepatitis C Screening Abstracted [facility] Provider HEALTH MAINTENANCE Final Result * Lipid panel (03/07/2022) [facility] LDL/HDL Ratio 2 0 - 4 Triglycerides 82 0 - 150 mg/dL Cholesterol 185 0 - 200 mg/dL HDL 76 >=40 mg/dL LDL Cholesterol 93 0 - 100 mg/dL Blood Venous blood specimen / Unknown [facility] Provider LAB BLOOD ORDERABLES Jennifer l Result * HIV Screening (07/02/2019) HIV Screening Abstracted us Historical Provider HEALTH MAINTENANCE Final Result from Last 3 Months or Most Recently Relevant to Health Maintenance Insurance [facility] Care Teams Shade Cutter Relationship Specialty Start Date End Date Kofi Carey MD [address] [place] [address] PCP - General Internal Medicine 12/27/21
== END 2025-01-07 14:17 | disposition home or self-care (01) ==
LOC: HO.HMCFM 13:41
PROVIDERS: PCP Nurse Practitioner Family; Visit Provider Nurse Practitioner Family
DX: F41.1 Generalized anxiety disorder (principal); F33.1 Major depressive disorder, recurrent, moderate; M25.511 Pain in right shoulder; M25.512 Pain in left shoulder; F10.10 Alcohol abuse, uncomplicated

== ENCOUNTER → 2025-01-07 13:41 | Outpatient (BNVA) | payer OTHER, SELFPAY | PROVIDERS: PCP Nurse Practitioner Family; Visit Provider Nurse Practitioner Family | DX: M75.52 Bursitis of left shoulder (principal); M75.51 Bursitis of right shoulder; F41.1 Generalized anxiety disorder; E03.9 Hypothyroidism, unspecified; K21.9 Gastro-esophageal reflux disease without esophagitis; M25.561 Pain in right knee; M25.562 Pain in left knee; F33.1 Major depressive disorder, recurrent, moderate; F10.10 Alcohol abuse, uncomplicated; F17.210 Nicotine dependence, cigarettes, uncomplicated | CPT/HCPCS: 96127 ==

== ENCOUNTER 2025-03-14 08:12 | Outpatient (AMB) | payer OTHER, SELFPAY ==
--- NOTE | 2025-03-14 08:14 | MHC.PC.OV ---
Vital Signs 03/14/25 08:19 Height 5 ft Weight 134 lb 4 oz BMI 26.2 BP 118/70 Blood Pressure Location Lt brachial Position Sitting Respiration 12 Pulse 73 Pulse Source Pulse Oximeter Temp 97.2 F Temp Source Oral Pulse Oximetry (%) 99 Oxygen Delivery Method Room Air Intake Visit Reasons: 6 week f/u Intake Note: 6 weeks follow up. 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: No Allergies No Known Allergies Allergy (Verified 03/14/25 08:59) Medication List - Last Reconciled 03/14/25 by Nereyda Dang, FIREFIGHTER TYPE ONE- escitalopram oxalate 15 mg (1.5 x 10 mg) PO DAILY folic acid 1 mg PO DAILY indomethacin 25 mg PO TID PRN levothyroxine 25 mcg PO DAILY magnesium oxide mg PO mecobalamin (vitamin B12) 1,000 mcg PO DAILY norethindrone-ethin estradiol 1-35 mg-mcg 1 tab PO DAILY Tobacco use date assessed: 03/14/25 Dental Screening Dental Screen Date: 03/14/25 Did you have a dental visit in the last 12 months?: Yes Did you have a dental problem in the last 6 months where you did not have access to dental care?: No Was dental information given to patient?: Patient has dentist HPI HPI Comments History of Present Illness Details 39-year-old female current smoker, hypothyroid, subacromial bursitis bilat shoulders GERD, major depressive disorder, alcohol abuse Status post appendectomy, tonsillectomy, D and C Social History - 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 - Lives with her , who is supportive of her health goals. 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 - Left upper extremity symptoms include numbness and tingling, impacting daily activities. Starts at neck and extends to fingers specifically thumb, index and middle with index finger being the most affected. This has been present for years and worse since onset. Denies trauma or loss of use. - Indomethacin provides relief of her chronic knee and shoulder pain. . - Anxiety better mood noted with adjusted Lexapro dosage and magnesium. Self reduced from 15mg to 10mg and added magnesium at hs to help sleep. She is happy w/ this - Thyroid disorder stable on 25 mcg medication. - Smoking at half a pack per day; limited success with replacement therapies. - Cont to drink etoh; no more than previous. Review of Systems - Musculoskeletal: Reports left shoulder discomfort and knee pain. - Neurological: Reports left arm numbness and tingling, particularly in the index finger; mild weakness detected. - Psychiatric: Reports anxiety related to a recent job interview; overall improvement in mood with current medication regimen. - Respiratory: Denies significant changes, smoking half a pack per day. - Endocrine: Reports stability on thyroid medication. - Sleep: Reports vivid dreams previously; improved after dosage reduction of Lexapro. Physical Exam General: Well developed, well nourished, in no acute distress. Appears stated age. Head: Normocephalic, atraumatic. Eyes: Pupils are equal, round and reactive to light and accommodation. Conjunctivae are clear. Vision grossly normal. Lungs: Dim throughout Heart: Regular rate and rhythm. No murmurs, click, rubs or gallops are noted. Musculoskeletal: L arm neurovasc intact; normal pulses; HG strong. FROM L shoulder/arm/hand/fingers. Palpation over distal C spine and thoracic spine reproduce the radicular sx. She has pain over trap with palp. Neck FROM. Normal strength, tone and reflexes. Pulses: Peripheral pulses are equal and palpable bilaterally. Extremities: No clubbing, cyanosis nor edema is noted. Psych: Mood and affect appropriate. Discussion Notes I discussed the concerns regarding the patient's cervical radiculopathy, highlighting that symptoms suggest nerve involvement at the cervical spine level. Considering the persistent symptoms, I recommended obtaining an MRI of the cervical and thoracic spine for further evaluation. We discussed potential management strategies, including physical therapy, nerve injections, and possible ablation. I informed the patient that the MRI results would guide subsequent treatment. Transition in medication improved anxiety symptoms, and sleep quality was managed effectively with a combination of Lexapro and magnesium. The patient expressed anxiety due to a recent job interview, which is being monitored. Smoking cessation advice was provided with an offer to prescribe nicotine patches, explaining the necessity of personal readiness for quitting. Continued prescription of thyroid medication and appropriate refills were coordinated, ensuring comprehensive care management. Assessment and Plan 1. Radiculopathy Left upper ext - MRI of cervical/thoracic spine planned. 2. Anxiety/Depression - Continue 10 mg escitalopram. - Magenesium for insomnia 3. Chronic knee and shoulder pain, well relieved w/ Indomethacin; - Continue indomethacin. 4. Etoh - encourage cessation; active referral to addiction med; did not attend. 5. Thyroid Disorder - Continue medication regimen. Refill sent 6. Nicotine Dependence - Encourage cessation; offer nicotine replacement. Patch 14 sent in smoking 08/22 PPD 7. Health Maintenance - Schedule regular follow-ups. Patient Instructions - Continue taking indomethacin as prescribed. - Take escitalopram 10 mg daily, supplemented with magnesium. - Schedule MRI as discussed; follow up on scheduling if not contacted. - Consider quitting smoking; use cessation aids if ready. - Monitor symptoms post-job interview and report changes. - Ensure thyroid medication is taken consistently. - Schedule regular doctor visits to monitor all conditions. RTO FEB FOR CPE. MY OFFICE WILL ARRANGE FOR FU OF MRI RESULTS ONCE AVAILABLE Consent Patient was informed and verbally consented to the use of an ambient scribe for clinic note documentation during this visit. Total time spent caring for the patient today was 30 minutes. This includes time spent before the visit reviewing the chart, time spent during the visit, and time spent after the visit on documentation, reviewing laboratory results, diagnostic imaging, medications, performing a medically necessary evaluation, counseling on diagnoses, care coordination, ordering appropriate tests, ordering appropriate medications, review of tests performed by other providers, reporting test results with the patient, communication with other healthcare providers. COUNT INCLUDES THE [facility] Medical History (Updated 03/14/25 @ 08:58 by [facility] Anxiety Thyroid disorder Surgical History (Updated 09/02/24 @ 10:58 by Imtiaz Wren MA) History of appendectomy History of tonsillectomy Family History (Updated 09/02/24 @ 10:58 by Imtiaz Wren MA) Maternal Grandfather Substance abuse Sister Substance abuse Mother Cancer Hypertension Brother Cancer Asthma Father Cancer Hypertension Social History (Updated 09/02/24 @ 10:56 by Imtiaz Wren MA) Household Members: Spouse Both parents involved: No Caregiver staying overnight: No Housing: House Are you a primary administrator health care facility to a significant other at home: No Do you presently have visiting nurse or other home services: No 75 years or older and lives alone: No Alcohol intake: current Alcohol intake frequency: a few times a month Patient Tobacco Use Status: Current everyday Tobacco user Cigarettes Per Day: 10 Years Smoked: 19 e-Cigarette/Vaping Use: Never Used Second Hand Smoke Exposure: No Current occupational status: employed 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 1. Little interest or pleasure in doing things: not at all 2. Feeling down, depressed, or hopeless: not at all 3. Trouble falling or staying asleep, or sleeping too much: not at all 4. Feeling tired or having little energy: not at all 5. Poor appetite or overeating: not at all 6. Feeling bad about yourself - or that you are a failure or have let yourself or your family down: not at all 7. Trouble concentrating on things, such as reading the newspaper or watching television: not at all 8. Moving or speaking so slowly that other people could have noticed. Or the opposite - being so fidgety or restless that you have been moving around a lot more than usual: not at all 9. Thoughts that you would be better off or of hurting yourself in some way: not at all Total score: 0 Depression Screening Interpretation: Negative Depression Screening Done: Yes 77218 - PHQ-9 Billing: Yes Source: Developed by Drs. Wayne Shelley, Rosalie Banks, Mike Banegas and colleagues, with an educational gary from [employer]. Thrive Questionnaire Date Thrive assessed: 03/14/25 I am a: Patient What is your living situation today?: I have a steady place to live Within the past 12 months, did the food you bought not last and you didn't have the money to get more?: Never true Within the past 12 months, did you worry whether your food would run out before you got money to buy more?: Never true Do you have trouble paying for medicines?: No Do you have trouble getting transportation to medical appointments?: No Do you have trouble paying your heating and electricity bill?: No Do you have trouble taking care of your child, family member or friend?: No Do you have trouble with day-to-day activities such as bathing, preparing meals, shopping, managing finances, etc.?: No Are you currently unemployed and looking for a job?: No Are you interested in more education?: No Please select the resources that you would like help with: None Currently or been in a relationship where the following occur: No concerns reported THRIVE Score: 0 AUDIT C Alcohol Use Questionnaire (AUDIT-C) 1. How often do you have a drink containing alcohol?: Monthly or less 2. How many drinks containing alcohol do you have on a typical day when you are drinking?: 1 or 2 3. How often do you have six or more drinks on one occasion?: Never Total Score: 1 CARYL-7 AMB Questionnaire CARYL-7 Date CARYL - 7 assessed: 03/14/25 Feeling nervous, anxious, or on edge: 0 = Not at all Not being able to stop or control worryin = Not at all Worrying too much about different things: 0 = Not at all Trouble relaxin = Not at all Being so restless that it is hard to sit still: 0 = Not at all Becoming easily annoyed or irritable: 0 = Not at all Feeling afraid as if something awful might happen: 0 = Not at all Total CARYL-7 score (0-4 normal; 5-9 mild; 10-14 moderate; 15-21 severe): 0 Source: Developed by Drs. Wayne Shelley, Rosalie Banks, Mike Banegas and colleagues, with an educational gary from [employer]. CARYL-7 Assessment Billing CARYL-7 Assessment Tool: CARYL-7 Assessment 04180 Physical exam (Primary Care) Vital Signs: Last Vital Signs Temp 97.2 F 03/14/25 08:19 Pulse 73 03/14/25 08:19 Resp 12 03/14/25 08:19 BP 118/70 03/14/25 08:19 Pulse Ox 99 03/14/25 08:19 Oxygen Delivery Method Room Air 03/14/25 08:19 BMI result Body Mass Index 26.2 Tobacco/Smoking Status: Tobacco use Status Tobacco use date assessed 03/14/25 03/14/25 08:21 Patient Tobacco Use Status Current everyday Tobacco 03/14/25 08:14 e-Cigarette/Vaping Use Never Used 03/14/25 08:14 Are you ready to quit: No Tobacco cessation counseling provided: Yes Items discussed: Nicotine replacement, QuitWorks and Other Relapse Prevention: discussed the importance of a supportive environment, discussed extending NRT, discussed negative mood or depression after quitting, weight gain after smoking is common and discussed dietary, exercise and/or lifestyle changes Number of minutes spent counselin CPT code: 77659 - 4-10 Minutes PHQ-9: PHQ-9 Score PHQ-9: Total score 0 03/14/25 08:21 Depression Screening Interpretation: Negative Thrive Assessment: Date of Thrive Assessment Date Thrive assessed 03/14/25 03/14/25 08:21 Currently or been in a relationship where the following occur: No concerns reported Coding Level of Care Code Est Pt Level 4 (82963) Complex EM visit Add On G2211 Diagnoses Left cervical radiculopathy M54.12 Moderate episode of recurrent major depressive disorder F33.1 Major depression episode severity: moderate CARYL (generalized anxiety disorder) F41.1 Alcohol abuse F10.10 Acquired hypothyroidism E03.9 Hypothyroidism type: acquired Pain of both shoulder joints M25.511; M25.512 Joint pain location: shoulder Laterality: bilateral Tobacco dependence F17.200 Additional Codes CARYL-7 Assessment Billing - CARYL-7 Assessment Tool: CARYL-7 Assessment 85908 ([id number]) PHQ-9 - 32359 - PHQ-9 Billing: Yes ([id number]) Vital Signs *Quality* - CPT code: 02137 - 4-10 Minutes ([id number]) Assessment & Plan Assessment & Plan (1) Left cervical radiculopathy: Code(s): M54.12 - Radiculopathy, cervical region Category: Medical (2) MDD (major depressive disorder), recurrent episode: Code(s): F33.9 - Major depressive disorder, recurrent, unspecified Category: Medical Qualifiers: Major depression episode severity: moderate Qualified Code(s): F33.1 - Major depressive disorder, recurrent, moderate (3) CARYL (generalized anxiety disorder): Code(s): F41.1 - Generalized anxiety disorder Category: Medical (4) Alcohol abuse: Code(s): F10.10 - Alcohol abuse, uncomplicated Category: Medical (5) Hypothyroid: Code(s): E03.9 - Hypothyroidism, unspecified Category: Medical Qualifiers: Hypothyroidism type: acquired Qualified Code(s): E03.9 - Hypothyroidism, unspecified (6) Joint pain: Comment: bilat shoulders, L > R Both knees Code(s): M25.50 - Pain in unspecified joint Category: Medical Qualifiers: Joint pain location: shoulder Laterality: bilateral Qualified Code(s): M25.511 - Pain in right shoulder; M25.512 - Pain in left shoulder (7) Tobacco dependence: Comment: Smoking Cessation How to Quit There are a lot of ways to quit smoking and many resources to help you. Family members, friends, and co-workers may be supportive or encouraging, but to be successful the desire and commitment to quit must be your own. Most people who have been able to successfully quit smoking made at least one unsuccessful attempt in the past. Try not to view past attempts to quit as failures, but rather as learning experiences. Stopping smoking or using smokeless tobacco is difficult, but anyone can do it. Know the symptoms to expect when you stop. Common symptoms include: ? An intense craving for nicotine ? Anxiety, tension, restlessness, frustration, or impatience ? Difficulty concentrating ? Drowsiness or trouble sleeping, as well as bad dreams and nightmares ? Drowsiness and trouble sleeping ? Headaches ? Increased appetite and weight gain ? Irritability or depression How severe your symptoms are depends on how long you smoked and how many cigarettes you smoked each day. Feel ready to quit? ? First and foremost, set a quit date and quit completely on that day. Before your quit date, you may begin reducing your cigarette use. But remember, there is no safe level of cigarette smoking. ? List the reasons why you want to quit. Include both short- and long-term benefits. ? Identify the times you are most likely to smoke. For example, do you tend to smoke when feeling stressed or down? When out at night with friends? While drinking coffee or alcohol? When bored? While driving? Right after a meal or sex? During a work break? While watching TV or playing cards? When you are with other smokers? ? Let all of your friends, family, and co-workers know of your plan to stop smoking and your quit date. Just being aware that they know what you're going through can be helpful, especially when you are grumpy. ? Get rid of all your cigarettes just before the quit date, and clean out anything that smells like smoke, such as clothes and furniture. Make a plan about what you will do instead of smoking at those times when you are most likely to smoke. ? Be as specific as possible. For example, drink tea instead of coffee -- tea may not trigger the desire for a cigarette. Or, take a walk when you feel stressed. ? Remove ashtrays and cigarettes from the car. Place pretzels or hard candies there instead. Pretend-smoke with a straw. ? Find activities that focus your hands and mind but are not taxing or fattening. Computer games, solitaire, knitting, sewing, and crossword puzzles may help. ? If you normally smoke after eating, find other ways to end a meal. Play a tape or CD, eat a piece of fruit, get up and make a phone call, or take a walk (a good distraction that also leyva calories). Make other changes in your lifestyle. ? Change your daily schedule and habits. Eat at different times or eat several small meals instead of three large ones. Sit in a different chair or even a different room. ? Satisfy your oral habits by eating celery or other low-calorie snack, chewing sugarless gum, or sucking on a cinnamon stick. ? Go to public places and restaurants where smoking is prohibited or restricted. ? Eat regular meals and don't eat too much candy or sweet things. ? Get more exercise. Take walks or ride a bike. Exercise helps relieve the urge to smoke. Set short-term quitting goals and reward yourself when you meet them. ? Every day, put the money you normally spend on cigarettes in a jar. Then buy something pleasurable after a period of time. ? Try not to think about all the days ahead you will need to avoid smoking. Take it one day at a time. ? Even one puff or one cigarette will make your desire for more cigarettes even stronger. However, it is normal to make mistakes. So even if you have one cigarette, you don't need to take the next one. Other tips to help you quit smoking and stick to it: ? Enroll in a smoking cessation program (hospitals, health departments, community centers, and work sites often offer programs). Learn about self-hypnosis or other techniques. ? Ask your health care provider about prescription medications that are safe and appropriate for you. ? Find out about nicotine patches, gum, and sprays. The [place] [employer]'s web site -- www.cancer.org -- is an excellent resource for smokers who are trying to quit, and the [employer] [place] [employer] can help some smokers kick the habit. Above all, don't get discouraged if you aren't able to quit smoking the first time. Nicotine addiction is a hard habit to break. Try something different next time. Develop new strategies, and try again. Many people take several attempts to finally kick the habit. Code(s): F17.200 - Nicotine dependence, unspecified, uncomplicated Category: Medical Plan . Orders: Orders MR cervical spine wo con Today M54.12 - Radiculopathy, cervical region MR thoracic spine wo con Today M54.12 - Radiculopathy, cervical region Medications: New levothyroxine (Euthyrox) 25 mcg PO DAILY 90 tabs 2RF nicotine 1 patch transdermal DAILY 28 ea 12RF Refilled escitalopram oxalate 10 mg PO DAILY 90 tabs 2RF indomethacin administer with food or milk 25 mg PO TID PRN 90 caps 1RF pain (scale score 1-3)
--- OUTSIDE RECORDS SUMMARY | 2025-03-14 08:18 | XMS_ITS | Data Portability ---
Author Organization [facility] Address [address] [place] [address] Care Team Providers Care Tax Lawyer Name Role Phone GIOVANI DENNEY Primary Care [...] rapid strep group A, throat 2018 019 [facility], [address] [place], [address], 9 14:06:29 culture, throat 2018 019 [facility] Patient Reg, [address], [place], [address], 9 09:08:54 Referral None recorded. Procedures None recorded. Surgeries None recorded. Imaging None recorded. Medication Orders naproxen 500 mg tablet 2024 025 [facility][id number], [address] [place], [address], 10:35:52 Patient TargetsNo targets recorded. Patient Instructions Encounter Date Encounter Id Patient Instructions Last Modified By Organization Details Last Modified Time 12/18/2024 [id number] You have had an Urgent Care Visit [...] Abnormal Flag Note LastModifiedBy Organization Detail LastModifiedTime 07/22/2007/22/2017 surgi bryce patho logy study surgical ----- ----- ----- ----- ----- ----- ----- ----- ----- ----- ----- ----- ----- ----- ----- ----- ----- ----- -- YARIEL NT: DEBI NAQVI 327 LOC: [facility] U #: [id number] AGE/S X: 31/F ROOM: RE07/[address]: Rachel mayesEder bonilla DO : 12/13 BED: DIS: STATU S: DEP SDC PROCE DURE/ OPERA TION PERFO RMED: SHERI CHOPRA SPEC #: [id number] RECD: 07/24-0 803 STATU S: GABBY REQ #: [id number] TRINA: 07/22-[address]: Rachel mayesEder bonilla DO ENTER ED: 07/24-0 806 SP TYPE: Surgi bryce OTHR DR: Alley,O n File TISSU E:Rosalie endix ----- ----- ----- ----- ----- ----- ----- ----- ----- ----- ----- ----- ----- ----- ----- ----- ----- ----- -- Final Diagn osis SHERI TOVAR, SHERI MOCK MY: - Acute appen dicit is with [...] surfa ce is cover ed by fibri nopur ulent exuda te. The tip of the appen re is inked and the speci men is RS, two casse ttes as follo ws: casse tte 1 = longi tudin al secti on and resec tion tessy n casse tte 2 = repre senta tive cross -sect ions. (MF) 07-24 MIRA Turk MD 12/1211 ----- ----- ----- ----- ----- ----- ----- ----- ----- ----- ----- ----- ----- ----- ----- ----- ----- ----- -- Not Available [facility] [address] [place], [address], 07/25/2017 12:13:50 06/12/2006/14/2019 cultu re, throa t throat culture No growth . Not Available [facility] [address] [place], [address], 06/14/2019 09:08:54 06/12/2006/12/2019 rapid strep group A, throa t Result negati ve Not Available [address] Constantin [place], [address], 06/12/2019 13:29:39 06/12/2006/12/2019 rapid strep group A, throa t Internal Control Valid Not Available [address] [place], [address], 06/12/2019 13:29:39 06/12/2006/12/2019 rapid strep group A, throa t Lot # [id number] Not Available [address] [facility] [place], [address], 06/12/2019 13:29:39 06/12/2006/12/2019 rapid strep group A, throa t Exp. Date 2020 Not Available [address] [place], [address], 06/12/2019 13:29:39 Result Notes None recorded. Problems No Known Problems Procedures Surgical History Date Name Laterality Status Provider Name and Address Organization Details Recorded Time 7 appendectomy completed Hortencia Hanley [facility] 07/25/2017 13:56:33 Imaging Results None recorded. [...] in Arterial blood by Pulse oximetry Systolic And Diastolic Provider Name and Address Organization Details Last Updated DateTime 5 97.6 [degF] 88 /min 96 % 96 % 114/70 mm[Hg] Maria Del Rosario Moulton MA [facility] 5 10:28:18 Date Recorded Body weight Body temperature Heart rate Oxygen saturation Oxygen saturation in Arterial blood by Pulse oximetry Systolic And Diastolic Provider Name and Address Organization Details Last Updated DateTime 9 90758.2 9 g 99.1 [degF] 87 /min 98 % 98 % 126/68 mm[Hg] Elvia Lisa [facility] 9 13:29:32 Date Recorded Body height Body mass index (BMI) Body weight Systolic And Diastolic Provider Name and Address Organization Details Last Updated DateTime 07/31/2017 170.18 cm 20.4 kg/m2 51256.01 g 118/72 mm[Hg] Joelstacy Dubon MA [facility] 07/31/2017 09:24:21 Social History None recorded. Functional Status None recorded. Mental Status None recorded. Family History Nothing Reported. Medical History No medical history recorded. Gynecological HistoryNo gynecological history recorded. Obstetrics History GPAL:G 0 P 0 0 0 0 Immunizations Vaccine Type Date Status Note Provider Nam e and Address Organization Details Recorded Time Influenza, split virus, quadrivalent, preservative 4 completed Helen Parker MD [address] [place] [address], [address], [facility] 12/19/2024 06:20:49 Influenza, MDCK, quadrivalent, preservative 1 completed Helen Parker MD [address] [place] [address], [address], [facility] 12/19/2024 06:20:49 MMR 1 completed Helen Parker MD [address] [place] [address], [address], [facility] 12/19/2024 06:20:49 MMR 9 completed Helen Parker MD [address] [place] [address], [address], [facility] 12/19/2024 06:20:49 COVID-19, mRNA, LNP-S, PF, 30 mcg/0.3 mL dose 2 completed Helen Parker MD [address] [place] [address], [address], [facility] 12/19/2024 06:20:49 COVID-19, mRNA, LNP-S, PF, 30 mcg/0.3 mL dose 1 completed [place] [facility] [place], [address], [facility] 12/19/2024 06:20:49 COVID-19, mRNA, LNP-S, PF, 30 mcg/0.3 mL dose 1 completed Helen Parker MD [address] [place], [place] [address], [address], [facility] 12/19/2024 06:20:49 COVID-19, mRNA, LNP-S, PF, 30 mcg/0.3 mL dose 1 completed Helen Parker MD [address] [place], [place] [address], [address], [facility] 12/19/2024 06:20:49 Tdap 2 completed MD [facility] [place], [address], [facility] 12/19/2024 06:20:49 Tdap 1 completed Helen Parker MD [address] [place], [place] [address], [address], [facility] 12/19/2024 06:20:49 DTP 3 completed Helen Parker MD [address] [place] [address], [address], [facility] 12/19/2024 06:20:49 DTP 8 completed MD Margoth [facility] [place], [address], [facility] 12/19/2024 06:20:49 DTP 8 completed Helen Parker MD [address] [place], [place] [address], [address], [facility] 12/19/2024 06:20:49 DTP 9 completed Helen Parker MD [address] [place] [address] [place], [address], [facility] 12/19/2024 06:20:49 DTP 8 completed Helen Parker MD [address] [place] [address] [place], [address], [facility] 12/19/2024 06:20:49 OPV, trivalent 3 completed Helen Parker MD [address] [place] [address] [place], [address], [facility] 12/19/2024 06:20:49 OPV, trivalent 8 completed Helen Parker MD [address] [place] [address] [place], [address], [facility] 12/19/2024 06:20:49 OPV, trivalent 8 completed Helen Parker MD [address] [place] [address] [place], [address], [facility] 12/19/2024 06:20:49 OPV, trivalent 9 completed Helen Parker MD [address] [place] [address] [place], [address], [facility] 12/19/2024 06:20:49 Influenza, split virus, trivalent, preservative 1 completed Helen Parker MD [address] [place] [address] [place], [address], [facility] 12/19/2024 06:20:49 Influenza, split virus, trivalent, preservative 4 completed Helen Parker MD [address] [place] [address] [place], [address], [facility] 12/19/2024 06:20:49 HPV, quadrivalent 3 completed Helen Parker MD [address] [place], [place] [address], [address], [facility] 12/19/2024 06:20:49 HPV, quadrivalent 3 gabriela Parker MD [address] [place] [address] [place], [address], [facility] 12/19/2024 06:20:49 HPV, quadrivalent 2 completed Helen Parker MD [address] [place] [address] [place], [address], [facility] 12/19/2024 06:20:49 Td (adult), 2 Lf tetanus toxoid, preservative free, adsorbed 9 gabriela Parker MD [address] [place] [address] [place], [address], [facility] 12/19/2024 06:20:49 Hep B, adolescent or pediatric 6 gabriela Parker MD [address] [place] [address] [place], [address], [facility] 12/19/2024 06:20:49 Hep B, adolescent or pediatric 7 gabriela Parker MD [address] [place] [address] [place], [address], [facility] 12/19/2024 06:20:49 Hep B, adolescent or pediatric 6 gabriela Parker MD [address] [place], [place] [address], [address], [facility] 12/19/2024 06:20:49 Hib (HbOC) 9 gabriela Parker MD [address] [place], [place] [address], [address], [facility] 12/19/2024 06:20:49 Past Encounters Encounter ID Performer Location Encounter Start Date Encounter Closed Date Diagnosis/Indication Diagnosis SNOMED-CT Code Diagnosis ICD10 Code Diagnosis Note [id number] DO [facility] [address] [place] [address] 07/31/2017 09:12:45 07/31/2017 12:46:52 Postoperative visit 679734991 Z09 OK to D/C and follow up prn Path acute appendicit is [id number] Kane Daniel [facility] [address] [place] [address] 06/12/2019 13:08:14 06/12/2019 14:41:48 Acute pharyngitis 256932068 J02.9 Presentati on consistent with viral pharyngiti s. Rapid strep negative; sending culture and will call with results. Advise fluids, rest, Tylenol/Mo evans for fever and pain. Follow up with PCP in 2-3 days if symptoms persist or sooner if worsening. Impacted cerumen 8253783 6 H61.23 Cerumen removed with improvemen t to symptoms, no signs/symp toms of secondary infxn. Discussed use of OTC kits to help prevent impaction. Advised against use of q-tips. F/u if symptoms recur. [id number] EBENEZER RODRIGUES NP [facility] [address] [place] [address] 12/18/2024 10:16:57 12/18/2024 10:51:03 Pain of left shoulder region 6167827334 M25.512 Suspect bursitis vs muscle sprain/str ain.Pain [...] Garcia Member ID Guarantor Name 12/19/2024 1 [facility] Tiffany Mixon [id number] Tiffany Mixon 12/18/2024 1 [facility] ANDREWS [id number] Tiffany Mixon [id number] Tiffany Mixon 12/18/2024 1 [facility] Tiffany Mixon [id number] Tiffany Mixon Notes Date Note Type Note Provider Name and Address Organization Details Recorded Time 07/31/2017 text/html 31 yo F presenting for lap appendectomy. She is doing well post operatively. Incision is C/D/I. Pain resolved. Tolerating diet. Having BM. Chris Ceja DO [address] [place], [address], [facility] 07/31/2017 11:57:59 06/12/2019 text/html ROS as noted in the HPI 33/F presents for sore throat. Reports: - 3d sore throat, fatigue, body aches - still has appetite - minimal runny nose, no cough - tonsils removed 10 yrs ago, no strep since then - smoker - PCP Dr. Faviola Potts ROS: sore throat, fatigue, body aches, minimal rhinorrhea, no fever, no cough, no ear pain Helen Parker MD [address] [place], [address], [facility] 06/13/2019 05:52:51 12/18/2024 text/html 39 y/o [...] or trauma, no falls. Helen Parker MD [address] [place], [address], [facility] 12/19/2024 06:21:04 OBGyn Episode No OBEpisode recorded.
--- OUTSIDE RECORDS SUMMARY | 2025-03-14 08:18 | XMS_ITS | Clinical Summary ---
Author Organization [facility] [address] [place] [address] [place] [address] Phone Care Team Providers Care Talent Scout Name Role Phone Kofi Carey MD Primary Care Provider Allergies No known active allergies Medications norethindrone (TAMARA,SAURABH, RAMIREZ,MICRON OR) 0.35 mg tablet Take 1 Tablet by mouth daily. 01/31/20 24 Active cyanocobalamin (VITAMIN B-12) 1,000 mcg tablet Take 1 Tablet by mouth daily. 03/07/20 22 Active escitalopram (LEXAPRO) 5 mg tablet Take 1 tablet (5 mg total) by mouth 1 (one) time each day. 90 each 06/25/20 24 Active folic acid (FOLVITE) 1 mg tablet TAKE 1 TABLET BY MOUTH EVERY DAY 90 tablet 1 12/17/19 25 Active levothyroxine (SYNTHROID, LEVOTHROID) 25 mcg tablet TAKE 1 TABLET BY MOUTH EVERY DAY BEFORE BREAKFAST 15 tablet 03/03/20 25 Active levothyroxine (SYNTHROID, LEVOTHROID) 25 mcg tablet TAKE 1 TABLET BY MOUTH 1 TIME EACH DAY BEFORE BREAKFAST. 30 tablet 12/17/19 25 025 Discontinued Active Problems Problem Noted Date Diagnosed Date Elevated TSH 05/27/2024 Cigarette smoker 03/07/2022 Subacromial bursitis of both shoulders 2 Immunizations Name Administration Dates Next Due DTP 02/26/1993,,08/01/1988,1987,03/04/1988 [id number] (Pentacel) 2mo to less than 5yo 07/10/1989 [...] 2008 PROCEDURE: HISTORICAL D&C APPENDECTOMY 07/2017 PROCEDURE: ND APPENDECTOMY Medical History Medical History Date Comments [...] your loved ones. For example, child care provider or elderly care for an [...] 72 06/25/2024 1:33 PM EST Temperature 36.3 C (97.3 F) 06/25/2024 1:33 PM EST Respiratory Rate 14 06/25/2024 1:33 PM EST [...] 5 Years) and At-Risk Patients (6 to 49 Years) (1 of 2 - PCV) 12/13/2006 COVID-19 Vaccine ( season) 2024 08/21/2021, 08/04/2021, 09/29/2020, Additional history exists Depression Screening 08/21/2024 06/25/2024 Influenza Vaccine (#1) 2025 , 08/04/2021, 05/06/2011 Social Influencers of Health Screening 06/25/2025 06/25/2024 [...] Results * Cervical Cancer Screening: HPV (01/31/2024) [facility] Cervical Cancer Screening: HPV No Interpretation , Abstracted [facility] Provider HEALTH MAINTENANCE Final Result * Hepatitis C Screening (03/07/2022) [facility] Hepatitis C Screening Abstracted [facility] Provider HEALTH MAINTENANCE Final Result * Lipid panel (03/07/2022) [facility] LDL/HDL Ratio 2 0 - 4 Triglycerides 82 0 - 150 mg/dL Cholesterol 185 0 - 200 mg/dL HDL 76 >=40 mg/dL LDL Cholesterol 93 0 - 100 mg/dL Blood Venous blood specimen / Unknown [facility] Provider LAB BLOOD ORDERABLES Jennifer l Result * HIV Screening (07/02/2019) HIV Screening Abstracted us Historical Provider HEALTH MAINTENANCE Final Result from Last 3 Months or Most Recently Relevant to Health Maintenance Insurance [facility] Care Teams Talent Scout Relationship Specialty Start Date End Date Kofi Carey MD [address] [place] [address] PCP - General Internal Medicine 12/27/21
--- OUTSIDE RECORDS SUMMARY | 2025-03-14 08:18 | XMS_ITS ---
Author Name [facility] Organization Unknown Care Team Organization Name Specialty Phone Email Start Date End Lucas sabillon [facility] 01/31/2024 [facility] Termed, PROVIDER Primary Care 06/28/202203/21
[2025-03-14 08:19] VITALS: BP 118/70; PULSE 73; RESP 12; TEMP 36.2; O2SAT 99; BMI 26.2
== END 2025-03-14 09:17 | disposition home or self-care (01) ==
LOC: HO.HMCFM 08:14
PROVIDERS: PCP Nurse Practitioner Family; Visit Provider Nurse Practitioner Family
DX: M54.12 Radiculopathy, cervical region (principal); F33.1 Major depressive disorder, recurrent, moderate; F41.1 Generalized anxiety disorder; F10.10 Alcohol abuse, uncomplicated; E03.9 Hypothyroidism, unspecified; M25.511 Pain in right shoulder; M25.512 Pain in left shoulder; F17.200 Nicotine dependence, unspecified, uncomplicated

== ENCOUNTER → 2025-03-14 08:12 | Outpatient (BNVA) | payer OTHER, SELFPAY | PROVIDERS: PCP Nurse Practitioner Family; Visit Provider Nurse Practitioner Family | DX: K21.9 Gastro-esophageal reflux disease without esophagitis (principal); E03.9 Hypothyroidism, unspecified; E78.9 Disorder of lipoprotein metabolism, unspecified; M54.12 Radiculopathy, cervical region; F33.1 Major depressive disorder, recurrent, moderate; F41.1 Generalized anxiety disorder; M25.511 Pain in right shoulder; M25.512 Pain in left shoulder; F10.10 Alcohol abuse, uncomplicated; F17.210 Nicotine dependence, cigarettes, uncomplicated | CPT/HCPCS: 96127 ==